=== PATIENT | female | born 1985 | race Two or more races ===

== ENCOUNTER 2021-04-22 09:38 | Emergency (ER) | payer OTHER, SELFPAY ==
--- NOTE | ~2021-04-22 | XR_ITS ---
EXAMINATION: XR CHEST CLINICAL INFORMATION: Coughing COMPARISON: None TECHNIQUE: 2 views of the chest were obtained. FINDINGS: No significant abnormality is noted involving the heart, lungs, mediastinum, bony thorax or soft tissues. XR/XR chest 2V IMPRESSION: No acute disease.
[2021-04-22 09:50] VITALS: BP 121/43; PULSE 74; RESP 20; TEMP 37.2; O2SAT 100; BMI 26.5
--- NOTE | 2021-04-22 10:59 | ED_ITS ---
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 Related Data Allergies Allergy/AdvReac Type Severity Reaction Status Date / Time No Known Allergies Allergy Verified 04/22/21 10:58 Review of Systems Review of Systems: All other systems are reviewed and are negative Constitutional: Reports as per HPI and Reports no additional constitutional complaints Eyes: Reports as per HPI and Reports no additional eye complaints Reports system reviewed and no additional complaints, except as documented Cardiovascular: Reports as per HPI and Reports no additional cardiovascular complaints Respiratory: Reports as per HPI and Reports no additional respiratory complaints Gastrointestinal: Reports as per HPI and Reports no additional gastrointestinal complaints Genitourinary: Reports no additional female genitourinary complaints Musculoskeletal: Reports no additional musculoskeletal complaints Skin/Breast: Reports system reviewed and no additional complaints, except as docu Psychiatric: Reports no additional psychiatric complaints Endocrine: Reports no additional endocrine complaints Hematologic/Lymphatic: Reports no additional hematologic/lymphatic complaints Allergic/Immunologic: Reports no additional allergic/immunologic complaints Reports system reviewed and no additional complaints, except as documented and Reports Abnormal speech present [facility] Past Medical History Surgical History Previous section Social History Social History Advance Directives: No Patient : No Physical Exam Vital Signs: Vital Signs: Last Vital Signs Temp 98.9 F 04/22/21 09:50 Pulse 74 04/22/21 09:50 Resp 20 04/22/21 09:50 BP 121/43 L 04/22/21 09:50 Pulse Ox 100 04/22/21 09:50 Body Mass Index 26.5 Vital signs have been reviewed as appeared to be correct. Blood pressure normal. Heart rate normal. Respiration rate normal. Temperature normal. Oxygen saturation normal. Appearance: Alert. Oriented X3. No acute distress. Head: Normal external exam. Normocephalic. Atraumatic. No Wilson signs noted. No raccoon eyes noted Eyes: PERRLA. EOMI. Conjunctiva and sclera normal. Eyelids normal. ENT: TM's Normal. Pharynx normal. Uvula midline. Moist mucous membranes. No trismus noted. No drooling noted. No muffled voice noted. Neck: Normal inspection. Neck supple. FROM. No adenopathy. Thyroid Normal. No meningeal signs. No neck mass noted. CVS: Normal heart rate and rhythm. Heart sound normal. No murmurs noted. Pulses normal throughout. Respiratory: No respiratory distress. Painless inspiration. Breath sounds normal. No wheezes/rales/rhonchi noted. Chest nontender. No accessory muscle usage noted or decreased air movement noted. Abdomen: Soft and nontender. Bowel sounds normal in all 4 quadrants. No distention noted. No organomegaly noted. No visible injury noted. Back: No CVA tenderness. Full range of motion noted. Skin: Skin warm and dry. Normal skin color. Normal skin turgor. No rashes/lesions/lacerations noted. Extremities: No lower extremity edema. Extremities exhibit normal range of motion. Extremities nontender. Neuro: Oriented X 3. Cranial nerve exam: II-XII are grossly intact No motor deficit. No sensory deficit. Reflexes normal. Course Course Course Narrative: Assessment and plan. Upper respiratory viral infection. NSAIDs, rest. Medical Decision Making Lab Data Lab results reviewed: Yes I reviewed the patient's lab results. Labs: Lab Results 04/22/21 Range/Units 11:13 Influenza Type A (PCR) NEGATIVE (Negative) Influenza Type B (PCR) NEGATIVE (Negative) RSV RNA Qual (PCR) NEGATIVE (Negative) SARS-CoV-2 RNA (RT-PCR) NEGATIVE (Negative) Imaging Data Chest x-ray: Radiologist's impression: No acute lung pathology. Discharge Plan Discharge Clinical Impression: Viral infection Patient Disposition: Home, Self-Care Instructions: Viral Syndrome (ED) Referrals: Physician,Unknown J [Primary Care Provider] - 2 days Stand Alone Forms: Work/School Release
[2021-04-22 11:57] LABS: Influenza A PCR NEGATIVE (Negative); Influenza B PCR NEGATIVE (Negative); Resp Syncy Virus RNA Qual PCR NEGATIVE (Negative); SARS COV2 PCR INHOUSE NEGATIVE (Negative)
== END 2021-04-22 12:09 | disposition home or self-care (01) ==
PROVIDERS: Emergency Provider Emergency Medicine
DX: B34.9 Viral infection, unspecified (principal); Z20.822 Contact with and (suspected) exposure to COVID-19
CPT/HCPCS: 0241U; 36415; 71046; 99283

== ENCOUNTER 2021-05-30 07:20 | Emergency (ER) | payer OTHER, MEDICAID, SELFPAY ==
[2021-05-30 07:31] VITALS: BP 113/68; PULSE 81; RESP 16; TEMP 36.6; O2SAT 98; BMI 26.1
--- NOTE | 2021-05-30 08:08 | ED.EAR ---
HPI - Ear Problem General Chief complaint: Ear Problems Stated complaint: ear pain Time Seen by Provider: 05/30/21 08:02 Source: patient Mode of arrival: ambulatory Limitations: no limitations History of Present Illness HPI Narrative: Sore throat and left ear pain. Two days ago started with left-sided throat pain, seeing white patches on the left side of the throat, pain radiated to the left ear. Patient has 3 vaccination for COVID, no sick contacts, no recent travel, no recent swelling. Related Data Previous Rx's Medication Instructions Recorded amoxicillin 500 mg tablet 500 mg PO BID #14 tab 05/30/21 Allergies Allergy/AdvReac Type Severity Reaction Status Date / Time No Known Allergies Allergy Verified 04/22/21 10:58 Review of Systems Review of Systems: All other systems are reviewed and are negative Constitutional: Reports as per HPI and Reports no additional constitutional complaints Eyes: Reports as per HPI and Reports no additional eye complaints Reports system reviewed and no additional complaints, except as documented Cardiovascular: Reports as per HPI and Reports no additional cardiovascular complaints Respiratory: Reports as per HPI and Reports no additional respiratory complaints Gastrointestinal: Reports as per HPI and Reports no additional gastrointestinal complaints Genitourinary: Reports no additional female genitourinary complaints Musculoskeletal: Reports no additional musculoskeletal complaints Skin/Breast: Reports system reviewed and no additional complaints, except as docu Psychiatric: Reports no additional psychiatric complaints Endocrine: Reports no additional endocrine complaints Hematologic/Lymphatic: Reports no additional hematologic/lymphatic complaints Allergic/Immunologic: Reports no additional allergic/immunologic complaints Reports system reviewed and no additional complaints, except as documented and Reports Abnormal speech present [facility] Past Medical History Surgical History Previous section Social History Social History Advance Directives: No Advance Directives Information Provided: Yes Patient : No Physical Exam Vital Signs: Vital Signs: Last Vital Signs Temp 98 F 05/30/21 07:31 Pulse 81 05/30/21 07:31 Resp 16 05/30/21 07:31 BP 113/68 05/30/21 07:31 Pulse Ox 98 05/30/21 07:31 BMI result Body Mass Index 26.1 Vital signs have been reviewed as appeared to be correct. Blood pressure normal. Heart rate normal. Respiration rate normal. Temperature normal. Oxygen saturation normal. Appearance: Alert. Oriented X3. No acute distress. Head: Normal external exam. Normocephalic. Atraumatic. No Wilson signs noted. No raccoon eyes noted Eyes: PERRLA. EOMI. Conjunctiva and sclera normal. Eyelids normal. ENT: Slight left TM erythema, with tenderness to the left year on exam, Pharynx with mild erythema, no exudate, Uvula midline. Moist mucous membranes. No trismus noted. No drooling noted. No muffled voice noted. Neck: Normal inspection. Neck supple. FROM. No adenopathy. Thyroid Normal. No meningeal signs. No neck mass noted. CVS: Normal heart rate and rhythm. Heart sound normal. No murmurs noted. Pulses normal throughout. Respiratory: No respiratory distress. Painless inspiration. Breath sounds normal. No wheezes/rales/rhonchi noted. Chest nontender. No accessory muscle usage noted or decreased air movement noted. Abdomen: Soft and nontender. Bowel sounds normal in all 4 quadrants. No distention noted. No organomegaly noted. No visible injury noted. Back: No CVA tenderness. Full range of motion noted. Skin: Skin warm and dry. Normal skin color. Normal skin turgor. No rashes/lesions/lacerations noted. Extremities: No lower extremity edema. Extremities exhibit normal range of motion. Extremities nontender. Neuro: Oriented X 3. Cranial nerve exam: II-XII are grossly intact No motor deficit. No sensory deficit. Reflexes normal. Course Course Course Narrative: Assessment and plan: 36-year-old female came in with sore throat and left ear otitis media start the patient on amoxicillin/NSAIDs/1 dose of prednisone in the ED to help the swelling and the erythema. Discharge Plan Discharge Clinical Impression: Otitis media, Pharyngitis Patient Disposition: Home, Self-Care Instructions: Pharyngitis (ED), Ear Infection (ED) Prescriptions: New amoxicillin 500 mg tablet 500 mg PO BID Qty: 14 RF: 0 Referrals: Afsaneh Singh PA [Primary Care Provider] - 2 days
[2021-05-30] MEDS: Ibuprofen 600 MG TABLET PO (08:25)
[2021-05-30] MEDS: Amoxicillin 500 MG CAPSULE PO (08:25)
[2021-05-30] MEDS: predniSONE 20 MG TABLET 40 MG PO (08:25)
[2021-05-30 08:27] VITALS: BP 104/62; PULSE 70; RESP 16; O2SAT 100
== END 2021-05-30 08:43 | disposition home or self-care (01) ==
PROVIDERS: Emergency Provider Emergency Medicine; PCP Physician Assistant Medical
DX: H66.92 Otitis media, unspecified, left ear (principal); J02.9 Acute pharyngitis, unspecified
CPT/HCPCS: 99283

== ENCOUNTER 2021-08-02 09:30 | Emergency (ER) | payer OTHER, SELFPAY ==
--- NOTE | ~2021-08-02 | CT_ITS ---
EXAMINATION: CT SOFT TISSUE NECK WITH CONTRAST CLINICAL INFORMATION: Neck pain. Family history of lymphoma. COMPARISON: No relevant prior imaging. TECHNIQUE: Following the intravenous administration of 100 mL of Omnipaque 350 intravenous contrast, helical imaging was performed in the axial plane with generation of coronal and sagittal reformatted images. This CT examination was performed using dose optimization techniques as appropriate, variously including the following: *Automated exposure control *Adjustment of mA and/or kV according to patient size (this includes techniques or standardized protocols for targeted exams where dose is matched to indication/reason for exam; i.e. extremities or head) *Use of iterative reconstruction technique DLP: 488 mGy-cm FINDINGS: There is nonspecific prominence of the palatine tonsils. Parapharyngeal and retromaxillary fat is preserved. Bung Dropper spaces are symmetric. The parotid and submandibular glands are normal. The tongue base and epiglottis are normal. Preepiglottic fat is preserved. Glottic and subglottic airways are widely patent. The thyroid gland is normal and the remainder of the visualized visceral soft tissues are normal. No pathologically enlarged cervical lymph nodes. No mediastinal or axillary adenopathy is visualized within the [id number] of this examination. Lung apices are clear. Aortic arch apex is normal. Cervical carotid and vertebral arteries are patent. Internal jugular veins fill symmetrically. There is no acute osseous finding. No worrisome lytic or blastic osseous lesion. The skull base is intact. No mastoid or middle ear effusion. No active paranasal sinus disease. CT/CT soft tissue neck w con IMPRESSION: Mild nonspecific prominence of the palatine tonsils. Otherwise normal soft tissue neck CT scan. No identifiable enhancing soft tissue mass or adenopathy.
[2021-08-02 09:36] VITALS: BP 113/59; PULSE 78; RESP 18; TEMP 36.8; O2SAT 99; BMI 26.1
[2021-08-02 10:09] LABS: Basophils Percent Auto 0.4 % (0-2); Eosinophils Absolute Auto 0.1 X10*3/uL (0.0-0.4); Eosinophils Percent Auto 1.7 % (0-4); Hematocrit 37.7 % (37.0-47.0); Hemoglobin 12.4 g/dl (12.0-16.0); Imm Gran Abs Auto 0.01 X10*3/uL (0.00-0.03); Imm Gran Pct Auto 0.2 % (0.0-0.4); Lymphocytes Absolute Auto 0.9 X10*3/uL (1.2-4.9); Lymphocytes Percent Auto 17.4 % (20-40); MANUAL DIFF FLAG NO; Mean Corpuscular HGB Conc 32.9 g/dl (31.0-35.0); Mean Corpuscular Hemoglobin 29.9 pg (27.0-33.0); Mean Corpuscular Volume 90.8 fL (80.0-98.0); Mean Platelet Volume 12.1 fL (9.4-12.3); Monocytes Absolute Auto 0.6 X10*3/uL (0.1-1.2); Monocytes Percent Auto 12.1 % (2-11); Neutrophils Absolute Auto 3.6 x10*3/uL (2.0-8.3); Neutrophils Percent Auto 68.2 % (45-73); Platelet Count 183 X10*3/uL (160-400); Red Blood Count 4.15 X10*6/uL (4.20-5.50); White Blood Count 5.3 X10*3/uL (4.8-10.8)
[2021-08-02] MEDS: 0.9 % Sodium Chloride 1,000 ML 999 ML IVCONT (10:11)
[2021-08-02 10:19] LABS: Strep A Nucleic Acid Negative (Negative)
[2021-08-02 10:31] LABS: Alanine Aminotransferase 15 U/L (0-31); Albumin Level 4.3 g/dL (3.5-5.0); Alkaline Phosphatase 59 U/L (39-117); Anion Gap 12 (12-20); Aspartate Amino Transferase 17 U/L (5-31); Bilirubin Total 0.4 mg/dL (0.0-1.0); Blood Urea Nitrogen 10 mg/dL (9-16); C Reactive Protein 0.87 mg/dL (< or = 0.50); Calcium 9.3 mg/dL (8.4-10.2); Carbon Dioxide 27 mmol/L (22-29); Chloride 103 mmol/L (96-108); Creatinine Clr Calc Pharmacy 109.6; Estimated Glomerular Filt Rate > 60; Glucose Random 92 mg/dL (60-115); Magnesium 2.1 mg/dL (1.6-2.6); Potassium 3.9 mmol/L (3.3-5.1); Sodium 138 mmol/L (135-145)
[2021-08-02 10:38] LABS: HCG Quantitative < 2 mIU/mL
--- NOTE | 2021-08-02 10:44 | ED.URI ---
HPI - URI/Sore Throat General Chief Complaint: General Medical Stated Complaint: dental issue Time Seen by Provider: 08/02/21 09:37 Source: patient Mode of arrival: ambulatory Limitations: language barrier (Czech-speaking although speaks some Kiswahili) History of Present Illness HPI Narrative: 36-year-old female who reports that she had a thyroid issue when her daughter was born 10 years ago who denies any other medical history presenting to the ED with complaints of atraumatic left sided neck pain/throat pain for the past 4 months. She reports that she was seen her approximately 3 months ago was given antibiotics for possible bacterial pharyngitis and she took the antibiotics as prescribed and no relief in her symptoms. She reports that her mother has a history of lymphoma. She reports that her sister also has a history of some type of cancer that she is unaware what actual cancer but she is being treated for it. She reports her aunt also has breast cancer. She denies any fevers, chills, dizziness, headaches, neck swelling/stiffness, trouble swallowing or breathing, drooling, changes in her voice, ear pain, cough, chest pain or shortness of breath, rashes, falls, dyspnea on exertion, orthopnea, palpitations, nausea/vomiting/diarrhea constipation, abdominal pain, back pain, dysuria, hematuria, abnormal vaginal discharge or any other symptoms complaints or concerns at this time. Denies recent travel or sick contacts. MD elicited complaint: sore throat Onset (ago): month(s) (4) Consistency: constant and progressively worsening Severity: moderate Able to tolerate fluids by mouth: Yes Exacerbating factors: nothing Relieving factors: nothing Context: other (See above) Associated symptoms: denies other symptoms Treatments prior to arrival: other (See above) Related Data Previous Rx's Medication Instructions Recorded amoxicillin 500 mg tablet 500 mg PO BID #14 tab 05/30/21 amoxicillin 875 mg-potassium 1 tab PO BID 10 Days #20 tab 08/02/21 clavulanate 125 mg tablet prednisone 20 mg tablet 40 mg PO DAILY 5 Days #10 tab 08/02/21 Allergies Allergy/AdvReac Type Severity Reaction Status Date / Time No Known Allergies Allergy Verified 04/22/21 10:58 Review of Systems Review of Systems: Constitutional : No Weight loss, No Fever, No Chills, No Night Sweats, No Fatigue, No Malaise ENT/Mouth : + left sided sore throat/throat/neck pain, No Hearing loss, No Ear Pain, No Nasal Congestion, No Sinus Pain, No Hoarseness, No Rhinorrhea, No Swallowing Difficulty Eyes: No Eye Pain, No Swelling, No Redness, No Foreign Body, No Discharge, No Vision Changes Cardiovascular : No Chest Pain, No SOB, No Dyspnea on Exertion, No Orthopnea, No Edema, No Palpitations Respiratory : No Cough, No Sputum, No Wheezing, No Smoke Exposure, No Dyspnea Gastrointestinal : No Nausea, No Vomiting, No Diarrhea, No Constipation, No abdominal Pain, No Hematochezia, No Melena Genitourinary : no irregular bleeding, No Dysuria, No Urinary Frequency, No Hematuria, No Urinary Incontinence, No Urgency, No Flank Pain, No Urinary Flow Changes, No Hesitancy Musculoskeletal : No joint pain, No Myalgias, No Joint Swelling Skin : No Skin Lesions, No rash Neuro : No Weakness, No Numbness, No Paresthesias, No Loss of Consciousness, No Dizziness, No Headache Psych : No Anxiety/Panic, No Depression, No SI/HI/AH/VH, No Social Issues, Heme/Lymph: No Bruising, No Bleeding,No Lymphadenopathy Endocrine : No Polyuria, No Polydipsia, No Temperature Intolerance Yes all other systems are reviewed and are negative [facility] Past Medical History Attestation statement: The following information was validated with the patient. Surgical History Previous section Social History Social History Advance Directives: No Advance Directives Information Provided: No Physical Exam Vital Signs: Vital Signs: Last Vital Signs Temp 98.3 F 08/02/21 09:36 Pulse 78 08/02/21 09:36 Resp 18 08/02/21 09:36 BP 113/59 L 08/02/21 09:36 Pulse Ox 99 08/02/21 09:36 BMI result Body Mass Index 26.1 vital signs have been reviewed as normal and appeared to be correct. Blood pressure normal. Heart rate normal. Respiration rate normal. Temperature normal. Oxygen saturation normal. Appearance: Alert. Oriented X3. No acute distress. Head: Normal external exam. Normocephalic. Atraumatic. Eyes: PERRLA. EOMI. Conjunctiva and sclera normal. Eyelids normal. ENT: EAC normal. TM's Normal. Pharynx normal. No exudate is noted. On the tongue there are no masses or lesions or ulcerations noted although she is noted to have punctuated black discoloration on the proximal aspect left side of the tongue. Uvula midline. Moist mucous membranes. No trismus noted. No drooling noted. No muffled voice noted. Neck: Normal inspection. Neck supple. FROM. No adenopathy. Thyroid Normal. No tracheal deviation noted. No crepitus is noted. No meningeal signs. No neck mass noted. No signs of trauma noted. CVS: Normal heart rate and rhythm. Heart sound normal. Pulses normal throughout. No murmurs/rales/gallops. Respiratory: No respiratory distress. Painless inspiration. Breath sounds normal. No wheezes/rales/rhonchi noted. Chest nontender. No crepitus is noted. No signs of trauma noted. accessory muscle usage noted or decreased air movement noted. No signs of trauma. Back: Full range of motion noted. Nontender. No signs of trauma. Patient neuro intact bilaterally and distally on all 4 extremities. Patient's reflexes intact bilaterally and distally on all 4 extremities. No rashes/lesion/induration/fluctuance or signs of infection noted. Skin: Skin warm and dry. Normal skin color. Normal skin turgor. No rashes/lesions/lacerations noted. Extremities: No lower extremity edema. No calf tenderness is noted. Extremities exhibit normal range of motion and nontender. Neuro: Oriented X 3. No motor deficit. No sensory deficit. Reflexes normal. Normal steady gait. No focal neuro deficits noted. CN's II-XII intact bilaterally? Vascular: + radial pulses/+ 2 distal pedal pulses/+2 dorsalis pedis b/l. Normal cap refill. No cyanosis noted to upper extremity nails and lower extremity toes nails. Course Course Course Narrative: 9:45am - 36-year-old female who reports that she had a thyroid issue when her daughter was born 10 years ago who denies any other medical history presenting to the ED with complaints of atraumatic left sided neck pain/throat pain for the past 4 months. She reports that she was seen her approximately 3 months ago was given antibiotics for possible bacterial pharyngitis and she took the antibiotics as prescribed and no relief in her symptoms. She reports that her mother has a history of lymphoma. She reports that her sister also has a history of some type of cancer that she is unaware what actual cancer but she is being treated for it. She reports her aunt also has breast cancer. Plan: Labs, rapid strep, CT scan of soft tissue neck with contrast and provide a L of IV fluids and re-evaluate. Reevaluation(s) Reevaluation #1: - labs returned and patient's CRP 0.87 otherwise all other labs are within normal limits. She is negative for mono. She is negative for strep. Her TSH level was within normal limits. - CT scan of soft tissue neck revealed mild nonspecific prominence of the tonsils otherwise no other acute processes were noted. Therefore will DC home with some antibiotics and instructions to follow-up with primary care provider and to return if any new or worsening symptoms. Patient understands agrees with this plan. Time: 11:50 MDM - URI/Sore Throat Medical Records Attestation: I reviewed the patient's medical records. Lab Data Attestation: I reviewed the patient's lab results. Result diagrams: 08/02/21 10:01 08/02/21 10:01 Labs: Lab Results 08/02/21 08/02/21 08/02/21 Range/Units 09:58 10:01 10:01 WBC 5.3 (4.8-10.8) X10*3/uL RBC 4.15 L (4.20-5.50) X10*6/uL Hgb 12.4 (12.0-16.0) g/dl Hct 37.7 (37.0-47.0) % MCV 90.8 (80.0-98.0) fL MCH 29.9 (27.0-33.0) pg MCHC 32.9 (31.0-35.0) g/dl RDW 13.0 (11.0-16.0) % Plt Count 183 (160-400) X10*3/uL MPV 12.1 (9.4-12.3) fL Immature Gran % (Auto) 0.2 (0.0-0.4) % Neut % (Auto) 68.2 (45-73) % Lymph % (Auto) 17.4 L (20-40) % [place] % (Auto) 12.1 H (2-11) % Eos % (Auto) 1.7 (0-4) % Baso % (Auto) 0.4 (0-2) % Lymph # (Auto) 0.9 L (1.2-4.9) X10*3/uL [place] # (Auto) 0.6 (0.1-1.2) X10*3/uL Eos # (Auto) 0.1 (0.0-0.4) X10*3/uL Baso # (Auto) 0.0 (0.0-0.2) X10*3/uL Abs Immat Gran (auto) 0.01 (0.00-0.03) X10*3/uL Absolute Neuts (auto) 3.6 (2.0-8.3) x10*3/uL Absolute Nucleated RBC 0.000 (0.0-0.012) X10*3/uL Nucleated RBC % (auto) 0.0 (0.0-0.2) /100WBC ESR (0-20) MM/HR Sodium 138 (135-145) mmol/L Potassium 3.9 (3.3-5.1) mmol/L Chloride 103 (96-108) mmol/L Carbon Dioxide 27 (22-29) mmol/L Anion Gap 12 (12-20) BUN 10 (9-16) mg/dL Creatinine 0.83 (0.5-1.4) mg/dL Estim Creat Clear Calc 109.6 Estimated GFR > 60 Random Glucose 92 (60-115) mg/dL Calcium 9.3 (8.4-10.2) mg/dL Magnesium 2.1 (1.6-2.6) mg/dL Total Bilirubin 0.4 (0.0-1.0) mg/dL AST 17 (5-31) U/L ALT 15 (0-31) U/L Alkaline Phosphatase 59 (39-117) U/L C-Reactive Protein 0.87 H (< or = 0.50) mg/dL Total Protein 7.0 (6.5-8.0) g/dL Albumin 4.3 (3.5-5.0) g/dL TSH 1.79 (0.32-4.0) uIU/mL Beta HCG, Quant mIU/mL Monoscreen (Negative) S. pyogenes GrpA MICKEY Negative (Negative) 08/02/21 08/02/21 08/02/21 Range/Units 10:01 10:01 10:01 WBC (4.8-10.8) X10*3/uL RBC (4.20-5.50) X10*6/uL Hgb (12.0-16.0) g/dl Hct (37.0-47.0) % MCV (80.0-98.0) fL MCH (27.0-33.0) pg MCHC (31.0-35.0) g/dl RDW (11.0-16.0) % Plt Count (160-400) X10*3/uL MPV (9.4-12.3) fL Immature Gran % (Auto) (0.0-0.4) % Neut % (Auto) (45-73) % Lymph % (Auto) (20-40) % [place] % (Auto) (2-11) % Eos % (Auto) (0-4) % Baso % (Auto) (0-2) % Lymph # (Auto) (1.2-4.9) X10*3/uL [place] # (Auto) (0.1-1.2) X10*3/uL Eos # (Auto) (0.0-0.4) X10*3/uL Baso # (Auto) (0.0-0.2) X10*3/uL Abs Immat Gran (auto) (0.00-0.03) X10*3/uL Absolute Neuts (auto) (2.0-8.3) x10*3/uL Absolute Nucleated RBC (0.0-0.012) X10*3/uL Nucleated RBC % (auto) (0.0-0.2) /100WBC ESR 6 (0-20) MM/HR Sodium (135-145) mmol/L Potassium (3.3-5.1) mmol/L Chloride (96-108) mmol/L Carbon Dioxide (22-29) mmol/L Anion Gap (12-20) BUN (9-16) mg/dL Creatinine (0.5-1.4) mg/dL Estim Creat Clear Calc Estimated GFR Random Glucose (60-115) mg/dL Calcium (8.4-10.2) mg/dL Magnesium (1.6-2.6) mg/dL Total Bilirubin (0.0-1.0) mg/dL AST (5-31) U/L ALT (0-31) U/L Alkaline Phosphatase (39-117) U/L C-Reactive Protein (< or = 0.50) mg/dL Total Protein (6.5-8.0) g/dL Albumin (3.5-5.0) g/dL TSH (0.32-4.0) uIU/mL Beta HCG, Quant < 2 mIU/mL Monoscreen Negative (Negative) S. pyogenes GrpA MICKEY (Negative) Imaging Data CT a soft tissue neck with IV contrast: Attestation: I personally reviewed and interpreted this imaging study as follows: Radiologist's impression: FINDINGS: There is nonspecific prominence of the palatine tonsils. Parapharyngeal and retromaxillary fat is preserved. Manager Benefit spaces are symmetric. The parotid and submandibular glands are normal. The tongue base and epiglottis are normal. Preepiglottic fat is preserved. Glottic and subglottic airways are widely patent. The thyroid gland is normal and the remainder of the visualized visceral soft tissues are normal. No pathologically enlarged cervical lymph nodes. No mediastinal or axillary adenopathy is visualized within the [id number] of this examination. Lung apices are clear. Aortic arch apex is normal. Cervical carotid and vertebral arteries are patent. Internal jugular veins fill symmetrically. There is no acute osseous finding. No worrisome lytic or blastic osseous lesion. The skull base is intact. No mastoid or middle ear effusion. No active paranasal sinus disease. CT/CT soft tissue neck w con IMPRESSION: Mild nonspecific prominence of the palatine tonsils. Otherwise normal soft tissue neck CT scan. No identifiable enhancing soft tissue mass or adenopathy.? Discharge Plan Discharge Clinical Impression: Enlargement of right palatine tonsil, Enlargement of left palatine tonsil Patient Disposition: Home, Self-Care Instructions: Tonsillitis (ED) Prescriptions: New amoxicillin-pot clavulanate 875-125 mg tablet 1 tab PO BID 10 Days Qty: 20 0RF prednisone 20 mg tablet 40 mg PO DAILY 5 Days Qty: 10 0RF No Action amoxicillin 500 mg tablet 500 mg PO BID Qty: 14 0RF Referrals: Geraldo Barreto [Physician] - 2 days
[2021-08-02 10:45] LABS: Erythrocyte Sedimentation Rate 6 MM/HR (0-20)
[2021-08-02 10:52] LABS: TSH reflex Free T4 1.79 uIU/mL (0.32-4.0)
[2021-08-02 10:57] LABS: Monotest Negative (Negative)
[2021-08-02] MEDS: iohexoL 350 MG/ML 100 ML INFUS..BTL 60 ML IV (10:59)
[2021-08-02 12:36] LABS: COVID-19 Test Negative (Negative)
== END 2021-08-02 12:15 | disposition home or self-care (01) ==
PROVIDERS: Physician Assistant Medical; Emergency Provider Emergency Medicine
DX: J35.1 Hypertrophy of tonsils (principal); Z79.899 Other long term (current) drug therapy; Z20.822 Contact with and (suspected) exposure to COVID-19
CPT/HCPCS: 36415; 70491; 80053; 83735; 84443; 84702; 85025; 85652; 86140; 86308; 87635; 87651; 99283; Q9967

== ENCOUNTER 2022-08-02 09:40 | Emergency (ER) | payer OTHER, SELFPAY ==
--- NOTE | ~2022-08-02 | CT_ITS ---
EXAMINATION: CT ABDOMEN AND PELVIS WITHOUT CONTRAST CLINICAL INFORMATION: Left flank pain COMPARISON: None TECHNIQUE: Multidetector volumetric imaging was performed from the superior aspect of the liver through the pubic symphysis. Sagittal and coronal reformatted images were obtained on the technologist's workstation. This CT examination was performed using dose optimization techniques as appropriate, variously including the following: *Automated exposure control *Adjustment of mA and/or kV according to patient size (this includes techniques or standardized protocols for targeted exams where dose is matched to indication/reason for exam; i.e. extremities or head) *Use of iterative reconstruction technique DLP: 640 mGy-cm FINDINGS: LUNG BASES: The visualized lung bases are unremarkable. LIVER, GALLBLADDER, AND BILIARY TREE: The liver is normal in size, shape, and attenuation. No focal hepatic lesion or biliary ductal dilatation is present. The gallbladder is unremarkable with no evidence of radiopaque gallstones, gallbladder wall thickening, or obvious pericholecystic inflammatory changes. PANCREAS: Unremarkable. SPLEEN: Unremarkable. ADRENAL GLANDS: Unremarkable. KIDNEYS AND URETERS: The kidneys are normal in size, shape, and attenuation. No hydronephrosis, hydroureter, or calculi seen. No perinephric stranding. BLADDER: Unremarkable. GASTROINTESTINAL TRACT: Stool throughout the colon suggestive of constipation. The small and large bowel are unremarkable. The appendix is unremarkable. ABDOMINAL WALL: Diastasis of the rectus muscles. LYMPH NODES: Normal. VASCULAR: Unremarkable. PELVIC VISCERA: Unremarkable. OSSEOUS STRUCTURES: Unremarkable. CT/CT abdomen pelvis wo IV con IMPRESSION: No stone or hydronephrosis seen. Constipation. Fleischner guidelines were followed.
[2022-08-02 10:05] VITALS: BP 116/74; PULSE 79; RESP 18; TEMP 36.3; O2SAT 100; BMI 24.8
[2022-08-02 10:19] LABS: MANUAL DIFF FLAG NO
[2022-08-02 10:21] LABS: Basophils Percent Auto 0.5 % (0-2); Eosinophils Absolute Auto 0.1 X10*3/uL (0.0-0.4); Eosinophils Percent Auto 2.3 % (0-4); Hematocrit 40.3 % (37.0-47.0); Hemoglobin 13.3 g/dl (12.0-16.0); Imm Gran Abs Auto 0.02 X10*3/uL (0.00-0.03); Imm Gran Pct Auto 0.3 % (0.0-0.4); Lymphocytes Absolute Auto 1.2 X10*3/uL (1.2-4.9); Lymphocytes Percent Auto 20.6 % (20-40); Mean Platelet Volume 11.6 fL (9.4-12.3); Monocytes Absolute Auto 0.7 X10*3/uL (0.1-1.2); Monocytes Percent Auto 11.6 % (2-11); Neutrophils Absolute Auto 3.9 x10*3/uL (2.0-8.3); Neutrophils Percent Auto 64.7 % (45-73); Platelet Count 196 X10*3/uL (160-400); Red Blood Count 4.43 X10*6/uL (4.20-5.50)
[2022-08-02 10:22] LABS: Appearance Urine Clear; Color Urine Yellow; Glucose Urine UA Negative (Negative); Leukocyte Esterase Urine Trace (Negative); Nitrite Urine Negative (Negative); Specific Gravity - Urine 1.025 (1.005-1.025); UMIC TRIGGER UACC YES; Urine Blood Negative (Negative); Urine Ketones Negative (Negative); Urine Protein Negative (Neg-Trace)
[2022-08-02 10:24] LABS: Bacteria Urine None Seen (None Seen); Hyaline Casts Urine 0-2 /LPF (0-2); RBC Urine 0-2 /HPF (0-2); WBC Urine 0-5 /HPF (0-5)
[2022-08-02 10:59] LABS: Alanine Aminotransferase 37 U/L (0-31); Albumin Level 4.2 g/dL (3.5-5.0); Alkaline Phosphatase 56 U/L (39-117); Anion Gap 13 (12-20); Aspartate Amino Transferase 26 U/L (5-31); Bilirubin Total 0.5 mg/dL (0.0-1.0); Blood Urea Nitrogen 15 mg/dL (9-16); Calcium 9.2 mg/dL (8.4-10.2); Carbon Dioxide 24 mmol/L (22-29); Chloride 105 mmol/L (96-108); Creatinine Clr Calc Pharmacy 101.6; Estimated Glomerular Filt Rate > 60; Glucose Random 66 mg/dL (60-115); Potassium 3.9 mmol/L (3.3-5.1); Sodium 138 mmol/L (135-145); Total Protein 6.8 g/dL (6.5-8.0)
--- NOTE | 2022-08-02 14:22 | ED.ABDPAIN ---
HPI - Abdominal Pain General Chief Complaint: Abdominal Pain Stated Complaint: L flank pain Time Seen by Provider: 08/02/22 14:02 Source: patient Mode of arrival: ambulatory Limitations: no limitations History of Present Illness HPI narrative: Patient comes to the emergency room complaining of left lower quadrant/left flank pain for approximately 2 months. Patient states the pain is constant. Patient complaining of intermittent dysuria, no hematuria. Denies any fever or chills. Also, patient states that when she wakes up in the morning or or eats anything 1st thing in the morning, she has burning abdominal pain. Related Data Previous Rx's Medication Instructions Recorded amoxicillin 500 mg tablet 500 mg PO BID #14 tabs 05/30/21 amoxicillin 875 mg-potassium 1 tab PO BID 10 days #20 tabs 08/02/21 clavulanate 125 mg tablet prednisone 20 mg tablet 40 mg PO DAILY rash 5 days #10 tabs 08/02/21 nitrofurantoin 100 mg PO Q12H 5 days #10 caps 08/02/22 monohydrate/macrocrystals 100 mg capsule (Macrobid) omeprazole 40 mg capsule,delayed 40 mg PO DAILY #14 caps 08/02/22 release polyethylene glycol 3350 17 17 g PO DAILY #119 grams 08/02/22 gram/dose oral powder (Miralax) Allergies Allergy/AdvReac Type Severity Reaction Status Date / Time kiwi Allergy Rash Verified 08/02/22 10:09 Review of Systems Review of Systems Constitutional : No Weight loss, No Fever, No Chills, No Night Sweats, No Fatigue, No Malaise ENT/Mouth : No Hearing loss, No Ear Pain, No Nasal Congestion, No Sinus Pain, No Hoarseness, No sore throat, No Rhinorrhea, No Swallowing Difficulty Eyes: No Eye Pain, No Swelling, No Redness, No Foreign Body, No Discharge, No Vision Changes Cardiovascular : No Chest Pain, No SOB, No Dyspnea on Exertion, No Orthopnea, No Edema, No Palpitations Respiratory : No Cough, No Sputum, No Wheezing, No Smoke Exposure, No Dyspnea Gastrointestinal : No Nausea, No Vomiting, No Diarrhea, No Constipation, No abdominal Pain, No Hematochezia, No Melena Genitourinary : no irregular bleeding, complaining of mild intermittent Dysuria for 2 months, No Urinary Frequency, No Hematuria, No Urinary Incontinence, No Urgency, complaining of sided Flank Pain, No Urinary Flow Changes, No Hesitancy Musculoskeletal : No joint pain, No Myalgias, No Joint Swelling Skin : No Skin Lesions, No rash Neuro : No Weakness, No Numbness, No Paresthesias, No Loss of Consciousness, No Dizziness, No Headache Psych : No Anxiety/Panic, No Depression, No SI/HI/AH/VH, No Social Issues, Heme/Lymph: No Bruising, No Bleeding,No Lymphadenopathy Endocrine : No Polyuria, No Polydipsia, No Temperature Intolerance [facility] Past Medical History Surgical History Previous section Social History Social History Alcohol intake: never Smoked in Last 30 Days: No Use of substances other than those prescribed or required for medical reasons: No Advance Directives: No Advance Directives Information Provided: No Patient : No Physical Exam ED Vital Signs: Vital Signs - 24 hr 08/02/22 10:05 08/02/22 14:30 Temperature 97.4 F 97.9 F Pulse Rate 79 66 Respiratory Rate 18 16 Blood Pressure 116/74 106/60 Pulse Oximetry 100 100 Oxygen Delivery Method Room Air Room Air BMI result Body Mass Index 24.8 Const Other: Appearance: Alert. Oriented X3. No acute distress. Eyes: Pupils equal, round and reactive to light. ENT: Pharynx normal. Neck: Normal inspection. Neck supple. No lymph nodes noted. No crepitus CVS: Normal heart rate and rhythm. Pulses normal. Normal S1 and S2 Respiratory: No respiratory distress. Breath sounds normal. No Wheezing. No rales Abdomen: Soft and nontender. No rigidity. No distention. Skin: Skin warm and dry. Normal skin color. Normal skin turgor. Extremities: No lower extremity edema. No Lacerations. No Rash Neuro: Oriented X 3. No motor deficit. No sensory deficit. Moving all extremities. No slurred speech. CN 2 through 12 grossly intact Psych: calm, cooperative, normal affect Course Course Course Narrative: -patient's physical exam is normal, patient did not have left lower quadrant pain or flank pain. -patient's urine shows trace leukocyte esterase. Usually, this would not be treated, however, since patient is complaining of intermittent dysuria, we will go ahead and treated as a UTI. -CT scan pending. Unlikely that the patient is passing kidney stones -the description that the patient gives of the burning abdominal pain when eating drinking or 1st thing in the morning, is likely secondary to gastritis. Medical Decision Making Medical Decision Making [facility] Narrative: --patient's labs within normal limits, CT scan unremarkable. -discussed with patient that she few continues having burning sensation in the stomach in the mornings and with fluid intake, she needs to follow up with Gastroenterology, -she will be treated at home with omeprazole. If this does not help, patient may need endoscopy. Differential Diagnosis Differential Diagnoses: The differential diagnosis associated with the presentation includes (Pyelonephritis, musculoskeletal pain, gastritis) Lab Data [facility] Lab Attestation statement: I reviewed the patient's lab results. 08/02/22 10:14 08/02/22 10:14 Labs: Lab Results 08/02/22 08/02/22 08/02/22 Range/Units 10:14 10:14 10:14 WBC 6.0 (4.8-10.8) X10*3/uL RBC 4.43 (4.20-5.50) X10*6/uL Hgb 13.3 (12.0-16.0) g/dl Hct 40.3 (37.0-47.0) % MCV 91.0 (80.0-98.0) fL MCH 30.0 (27.0-33.0) pg MCHC 33.0 (31.0-35.0) g/dl RDW 13.0 (11.0-16.0) % Plt Count 196 (160-400) X10*3/uL MPV 11.6 (9.4-12.3) fL Immature Gran % (Auto) 0.3 (0.0-0.4) % Neut % (Auto) 64.7 (45-73) % Lymph % (Auto) 20.6 (20-40) % [place] % (Auto) 11.6 H (2-11) % Eos % (Auto) 2.3 (0-4) % Baso % (Auto) 0.5 (0-2) % Lymph # (Auto) 1.2 (1.2-4.9) X10*3/uL [place] # (Auto) 0.7 (0.1-1.2) X10*3/uL Eos # (Auto) 0.1 (0.0-0.4) X10*3/uL Baso # (Auto) 0.0 (0.0-0.2) X10*3/uL Abs Immat Gran (auto) 0.02 (0.00-0.03) X10*3/uL Absolute Neuts (auto) 3.9 (2.0-8.3) x10*3/uL Absolute Nucleated RBC 0.000 (0.0-0.012) X10*3/uL Nucleated RBC % (auto) 0.0 (0.0-0.2) /100WBC Sodium 138 (135-145) mmol/L Potassium 3.9 (3.3-5.1) mmol/L Chloride 105 (96-108) mmol/L Carbon Dioxide 24 (22-29) mmol/L Anion Gap 13 (12-20) BUN 15 (9-16) mg/dL Creatinine 0.82 (0.5-1.4) mg/dL Estim Creat Clear Calc 101.6 Estimated GFR > 60 Random Glucose 66 (60-115) mg/dL Calcium 9.2 (8.4-10.2) mg/dL Total Bilirubin 0.5 (0.0-1.0) mg/dL AST 26 (5-31) U/L ALT 37 H (0-31) U/L Alkaline Phosphatase 56 (39-117) U/L Total Protein 6.8 (6.5-8.0) g/dL Albumin 4.2 (3.5-5.0) g/dL Urine Color Yellow Urine Appearance Clear Urine pH 7.0 (5.0-9.0) Ur Specific [place] 1.025 (1.005-1.025) Urine Protein Negative (Neg-Trace) mg/dL Urine Glucose (UA) Negative (Negative) mg/dL Urine Ketones Negative (Negative) mg/dL Urine Blood Negative (Negative) Urine Nitrite Negative (Negative) Ur Leukocyte Esterase Trace H (Negative) Urine RBC 0-2 (0-2) /HPF Urine WBC 0-5 (0-5) /HPF Ur Squamous Epith Cells 6-10 (0-2) /HPF Urine Bacteria None Seen (None Seen) Hyaline Casts 0-2 (0-2) /LPF Independent Interpretation I performed an independent interpretation of an: CT Scan (My interpretation of CT scan: Significant amount of stool in the abdomen) Radiology Impression Discussion of test interpretation with radiology: I have reviewed the radiologist's reading. Radiologist Impression: FINDINGS: LUNG BASES: The visualized lung bases are unremarkable.? LIVER, GALLBLADDER, AND BILIARY TREE: The liver is normal in size, shape, and attenuation. No focal hepatic lesion or biliary ductal dilatation is present. The gallbladder is unremarkable with no evidence of radiopaque gallstones, gallbladder wall thickening, or obvious pericholecystic inflammatory changes.? PANCREAS: Unremarkable.? SPLEEN: Unremarkable.? ADRENAL GLANDS: Unremarkable.? KIDNEYS AND URETERS: The kidneys are normal in size, shape, and attenuation. No hydronephrosis, hydroureter, or calculi seen. No perinephric stranding. ? BLADDER: Unremarkable.? GASTROINTESTINAL TRACT: Stool throughout the colon suggestive of constipation. The small and large bowel are unremarkable. The appendix is unremarkable.? ABDOMINAL WALL: Diastasis of the rectus muscles. LYMPH NODES: Normal. VASCULAR: Unremarkable. PELVIC VISCERA: Unremarkable.? OSSEOUS STRUCTURES: Unremarkable.? CT/CT abdomen pelvis wo IV con IMPRESSION: No stone or hydronephrosis seen. Constipation. ? Fleischner guidelines were followed. Discharge Plan Discharge Clinical Impression: Chronic left flank pain, UTI (urinary tract infection), Constipation Patient Disposition: Home, Self-Care Instructions: Constipation (ED), Urinary Tract Infection in Women (ED) Additional Instructions: Please follow-up with your primary care physician tomorrow. If you have any worsening or new symptoms, please return to the emergency room or call 911 Prescriptions: New nitrofurantoin monohyd/m-cryst [Macrobid] 100 mg capsule 100 mg PO Q12H 5 Days Qty: 10 0RF Rx Instructions: must administer with a meal/food polyethylene glycol 3350 [Miralax] 17 gram/dose powder 17 g PO DAILY Qty: 119 0RF omeprazole 40 mg capsule,delayed release(DR/EC) 40 mg PO DAILY Qty: 14 0RF No Action amoxicillin 500 mg tablet 500 mg PO BID Qty: 14 0RF amoxicillin-pot clavulanate 875-125 mg tablet 1 tab PO BID 10 Days Qty: 20 0RF prednisone 20 mg tablet 40 mg PO DAILY 5 Days Qty: 10 0RF
[2022-08-02 14:30] VITALS: BP 106/60; PULSE 66; RESP 16; TEMP 36.6; O2SAT 100
--- NOTE | 2022-08-02 14:38 | PC.NURSE ---
pt AOx3, VSS. awaiting CT scan.
== END 2022-08-02 18:19 | disposition home or self-care (01) ==
PROVIDERS: Emergency Provider Emergency Medicine; PCP Internal Medicine
DX: R10.32 Left lower quadrant pain (principal); N39.0 Urinary tract infection, site not specified; K59.00 Constipation, unspecified; Z79.899 Other long term (current) drug therapy
CPT/HCPCS: 36415; 74176; 80053; 81001; 85025; 99284

== ENCOUNTER 2023-05-12 15:37 | Emergency (ER) | payer OTHER, SELFPAY ==
--- NOTE | ~2023-05-12 | XR_ITS ---
EXAMINATION: XR FOOT, LEFT CLINICAL INFORMATION: Dorsal tenderness, dropped weight on foot. COMPARISON: None available. TECHNIQUE: AP, lateral, and oblique views of the left foot. FINDINGS: No evidence of acutely appearing fractures or subluxation. 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 Nonspecific mild increased sclerosis of the navicular bone with a chronic appearing deformity along its dorsal surface on the lateral view. No significant soft tissue abnormality. No unexpected radiopaque foreign bodies. XR/XR foot LT min 3V IMPRESSION: 1. No acute fractures or subluxation. 2. 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 3. Nonspecific mild increased sclerosis of the navicular bone with a chronic appearing deformity along its dorsal surface; recommend correlation with point tenderness and if indicated further characterization with outpatient MRI of the foot.
[2023-05-12 16:33] VITALS: BP 115/70; PULSE 72; RESP 17; TEMP 36.5; O2SAT 98; BMI 27.8
--- NOTE | 2023-05-12 16:34 | ED_ITS ---
HPI - General Adult General Chief complaint: Extremity Injury, Lower Stated complaint: dropped weight on foot Time Seen by Provider: 05/12/23 19:41 Source: patient Mode of arrival: ambulatory Limitations: no limitations History of Present Illness HPI narrative: Patient is a 38-year-old female presenting to the ED with complaint of left foot pain. States she dropped a weight onto left foot at the gym yesterday. States weight was between 25-45lbs. Increased pain since, bruising. Numnbness/tingling to 4th toe. complaint: left foot pain Onset (ago): hour(s) Location: left and lower extremity Radiation: non-radiation Severity: severe Quality: aching Pain Consistency: constant Relieving factors: rest Exacerbating factors: movement Associated symptoms: denies other symptoms Treatments prior to arrival: NSAID Related Data Previous Rx's Medication Instructions Recorded amoxicillin 500 mg tablet 500 mg PO BID #14 tabs 05/30/21 amoxicillin 875 mg-potassium 1 tab PO BID 10 days #20 tabs 08/02/21 clavulanate 125 mg tablet prednisone 20 mg tablet 40 mg (2 x 20 mg) PO DAILY rash 5 08/02/21 days #10 tabs nitrofurantoin 100 mg PO Q12H 5 days #10 caps 08/02/22 monohydrate/macrocrystals 100 mg capsule (Macrobid) omeprazole 40 mg capsule,delayed 40 mg PO DAILY #14 caps 08/02/22 release polyethylene glycol 3350 17 17 g PO DAILY #119 grams 08/02/22 gram/dose oral powder (Miralax) ibuprofen 600 mg tablet 600 mg PO Q6H PRN pain #14 tabs 05/12/23 Allergies Allergy/AdvReac Type Severity Reaction Status Date / Time kiwi Allergy Rash Verified 08/02/22 10:09 Review of Systems Review of Systems: As per HPI. Yes all other systems are reviewed and are negative Constitutional: Constitutional: Reports as per HPI PMF Past Medical History Surgical History Previous section Social History Social History Alcohol intake: never Advance Directives: No Physical Exam ED Vital Signs: Vital Signs - 24 hr 05/12/23 16:33 05/12/23 19:33 Temperature 97.7 F Pulse Rate 72 74 Respiratory Rate 17 16 Blood Pressure 115/70 124/71 Pulse Oximetry 98 98 Oxygen Delivery Method Room Air Room Air BMI result Body Mass Index 27.8 Vital signs have been reviewed and appear to be correct. Blood pressure normal. Heart rate normal. Respiratory rate normal. Temperature normal. Oxygen saturation normal. Const General: cooperative, healthy appearing and no acute distress Orientation/consciousness: oriented to person, oriented to place, oriented to time and patient oriented x3 Limitations: no limitations HENMT Head: Yes normocephalic and Yes atraumatic Ears: external ears normal General nose exam: Normal external nose present Face and sinus: Yes face symmetric Mouth: oropharynx normal and moist mucous membranes Throat: Yes uvula midline Eyes Pupils: Equal, round and reactive pupils present Neck Neck: Yes normal visual inspection and Yes supple Resp Effort & Inspection: normal respiratory effort and able to speak in complete sentences Auscultation: clear to auscultation bilaterally Cardio Rate: regular rate Rhythm: regular rhythm Heart sounds: S1 normal heart sound present and S2 normal heart sound present Skin General skin exam: elasticity normal and turgor normal Neuro General: oriented to person, oriented to place, oriented to time, patient oriented x3, moves all extremities, no focal motor deficits and CN's II-XI intact bilaterally Cranial nerves: Yes Equal, round and reactive pupils present Cognition (Neuro): normal cognition Extrem General: Yes full ROM, Yes no pedal edema and Yes no calf tenderness Left lower extremity: foot Details: normal capillary refill and tenderness Location: of the dorsal foot Psych Mental Status: mental status grossly normal Affect: normal affect Thought process: Normal thought process present Medical Decision Making Medical Decision Making MDM Narrative: Patient is a 38-year-old female presenting to the ED with complaint of left foot pain. On exam patient is awake, A+Ox3, VS WNL, afebrile, normal neurological exam without focal deficits, physical exam findings as above. Given reported symptoms and physical exam findings, initial differential includes contusion, fracture. X-ray notable for no acute fracture. My interpretation is in agreement with the radiologist's interpretation. Results discussed with patient and all questions answered. Advised patient to keep foot elevated while at rest, alternate Tylenol and ibuprofen, will refer to ortho for any ongoing symptoms. Return precautions discussed. Patient verbalized understanding of and agreement wtih plan. Differential Diagnosis Differential Diagnoses: The differential diagnosis associated with the presentation includes As per [facility] Independent Interpretation I performed an independent interpretation of an: Plain X-Ray Interpretation: No acute fracture Radiology Impression Discussion of test interpretation with radiology: I have reviewed the radiolog ist's reading. Radiologist Impression: XR/XR foot LT min 3V IMPRESSION: 1. No acute fractures or subluxation. 2. 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 3. Nonspecific mild increased sclerosis of the navicular bone with a chronic appearing deformity along its dorsal surface; recommend correlation with point tenderness and if indicated further characterization with outpatient MRI of the foot. External Record Review External record reviewed: Inpatient record, Office record and Outpatient record Prescription Management I considered prescription management with: Pain Medication Discharge Plan Discharge Clinical Impression: Contusion of foot, left Patient Disposition: Home, Self-Care Instructions: Foot Contusion (ED), R.I.C.E. Treatment (ED) Additional Instructions: You have been evaluated in the emergency department today for left foot pain. Your evaluation did not find evidence of medical conditions requiring emergent intervention at this time. Please rest, ice, and elevate your foot, and resume normal activities as tolerated. We recommend you take 600mg ibuprofen every 6 hours or 650mg Tylenol every 6 hours as needed for pain. If Needed you can alternate these medications as they take 1 medication every 3 hours. For instance at noon take ibuprofen, then at 3:00 p.m. take Tylenol, then at 6:00 p.m. take ibuprofen. Please schedule an appointment for follow-up with your primary care provider this week. Return to the emergency department if you experience worsening pain, numbness, tingling, change of color in your toes, or any other concerning symptoms. If your symptoms persist beyond the next 1-2 weeks, you can follow up with orthopedics. Prescriptions: New ibuprofen 600 mg tablet 600 mg PO Q6H PRN (Reason: pain) Qty: 14 0RF No Action amoxicillin 500 mg tablet 500 mg PO BID Qty: 14 0RF amoxicillin-pot clavulanate 875-125 mg tablet 1 tab PO BID 10 Days Qty: 20 0RF prednisone 20 mg tablet 40 mg PO DAILY 5 Days Qty: 10 0RF nitrofurantoin monohyd/m-cryst [Macrobid] 100 mg capsule 100 mg PO Q12H 5 Days Qty: 10 0RF Rx Instructions: must administer with a meal/food polyethylene glycol 3350 [Miralax] 17 gram/dose powder 17 g PO DAILY Qty: 119 0RF omeprazole 40 mg capsule,delayed release(DR/EC) 40 mg PO DAILY Qty: 14 0RF Referrals: [facility] [place] Orthopedic Surgeons [Provider Group] Interventions: ED Discharge Assessment Last Done: 05/12/23 19:40
[2023-05-12 19:33] VITALS: BP 124/71; PULSE 74; RESP 16; O2SAT 98
== END 2023-05-12 19:41 | disposition home or self-care (01) ==
PROVIDERS: Emergency Provider Emergency Medicine
DX: S90.32XA Contusion of left foot, initial encounter (principal); X58.XXXA Exposure to other specified factors, initial encounter; Y93.9 Activity, unspecified; Y92.9 Unspecified place or not applicable; Y99.9 Unspecified external cause status
CPT/HCPCS: 73630; 99282; 99284

== ENCOUNTER 2023-11-14 08:01 | Emergency (ER) | payer OTHER, SELFPAY ==
--- NOTE | 2023-11-14 | ECG_ITS ---
Test Reason : CHEST PAIN Blood Pressure : / mmHG Vent. Rate : 063 BPM Atrial Rate : 063 BPM P-R Int : 176 ms QRS Dur : 098 ms QT Int : 422 ms P-R-T Axes : 060 031 002 degrees QTc Int : 431 ms Normal sinus rhythm Normal ECG No previous ECGs available Referred By: Generic ED Physician Electronically Signed By:BARBARA OLIVAS MD
[2023-11-14 08:19] VITALS: BP 117/49; PULSE 69; RESP 18; TEMP 36.9; O2SAT 100; BMI 28.0
[2023-11-14 08:23] LABS: MANUAL DIFF FLAG NO
[2023-11-14 08:25] LABS: Basophils Percent Auto 0.4 % (0-2); Eosinophils Absolute Auto 0.1 X10*3/uL (0.0-0.4); Eosinophils Percent Auto 1.8 % (0-4); Hematocrit 39.2 % (37.0-47.0); Hemoglobin 13.3 g/dl (12.0-16.0); Imm Gran Abs Auto 0.01 X10*3/uL (0.00-0.03); Imm Gran Pct Auto 0.2 % (0.0-0.4); Lymphocytes Percent Auto 22.4 % (20-40); Mean Corpuscular HGB Conc 33.9 g/dl (31.0-35.0); Mean Corpuscular Hemoglobin 31.3 pg (27.0-33.0); Mean Corpuscular Volume 92.2 fL (80.0-98.0); Mean Platelet Volume 12.2 fL (9.4-12.3); Monocytes Absolute Auto 0.4 X10*3/uL (0.1-1.2); Monocytes Percent Auto 8.3 % (2-11); Neutrophils Percent Auto 66.9 % (45-73); Platelet Count 175 X10*3/uL (160-400); Red Blood Count 4.25 X10*6/uL (4.20-5.50); Red Cell Distribution Width 12.5 % (11.0-16.0); White Blood Count 4.5 X10*3/uL (4.8-10.8)
[2023-11-14 08:38] LABS: Anion Gap 13 (12-20); Blood Urea Nitrogen 15 mg/dL (9-16); Calcium 9.6 mg/dL (8.4-10.2); Carbon Dioxide 29 mmol/L (22-29); Chloride 102 mmol/L (96-108); Estimated Glomerular Filt Rate > 60; Glucose Random 116 mg/dL (60-115); Potassium 3.8 mmol/L (3.3-5.1); Sodium 140 mmol/L (135-145)
[2023-11-14 08:49] LABS: Troponin-I High Sensitivity < 2.7 ng/L (<3.5-17.0)
== END 2023-11-14 15:52 | disposition left against medical advice (07) ==
PROVIDERS: Emergency Provider Emergency Medicine
DX: R07.9 Chest pain, unspecified (principal); Z53.21 Procedure and treatment not carried out due to patient leaving prior to being seen by health care provider
CPT/HCPCS: 36415; 80048; 84484; 85025; 93005; 99283

== ENCOUNTER → 2023-11-14 08:07 | Outpatient (BNV) | payer OTHER, SELFPAY | PROVIDERS: Visit Provider Internal Medicine Cardiovascular Disease | DX: R07.9 Chest pain, unspecified (principal) | CPT/HCPCS: 93010 ==

== ENCOUNTER 2025-01-03 06:18 | Outpatient (REF) | payer OTHER, SELFPAY ==
--- OUTSIDE RECORDS SUMMARY | 2025-01-03 06:21 | XMS_ITS | Clinical Summary ---
Author Organization [facility] Address [address] [place] [address] Phone Care Team Providers Care Car Spotter Name Role Phone Physician, Pcp Unknown Primary Care Provider Sasha vailable Allergies Active Allergy Reactions Criticality Noted Date Comments Kiwi Rash 11/29/2022 Medications No known medications Active Problems No known active problems Encounters Date Type Department Care Team Description 11/06/2024 9:55 PM EDT - 11/07/2024 7:35 AM EDT Emergency [facility] Emergency [address] [place] [address] Andre Wilde MD Chest pain, unspecified type (Primary Dx); Pleuritic chest pain Discharge Disposition: Home or Self Care from Last 3 Months Surgical History Surgery Date Site/Laterality Comments TUBAL LIGATION PROCEDURE: HISTORICAL TUBAL LIGATION SECTION PROCEDURE: HISTORICAL DELIVERY Medical History Medical History Date Comments Patient denies medical problems DX:Patient denies medical problems Family History Medical History Relation Name Comments No Known Problems Father Lymphoma Mother Thyroid disease Mother Breast cancer Neg Hx Ovarian cancer Neg Hx Relation Name Status Comments Father Alive Mother Alive Social History Tobacco Use Types Packs/Day Years Used Date Smoking Tobacco: Never Smokeless Tobacco: Never Alcohol Use Standard Drinks/Week Comments Yes 0 (1 standard drink = 0.6 oz pur e alcohol) Comments Unknown Sex and Gender Information Value Date Recorded Sex Assigned at Not on file Legal Sex Female 5:21 AM EST Gender Identity Not on file Sexual Orientation Not on file Obstetrics History Last Filed Vital Signs Vital Sign Reading Time Taken Comments Blood Pressure 106/57 11/07/2024 7:29 AM EDT Pulse 64 11/07/2024 7:29 AM EDT Temperature 36.5 C (97.7 F) 11/07/2024 7:29 AM EDT Respiratory Rate 18 11/07/2024 7:29 AM EDT Oxygen Saturation 99% 11/07/2024 7:29 AM EDT Inhaled Oxygen Concentration - - Weight 81.6 kg (180 lb) 11/06/2024 6:42 PM EDT Height 177.8 cm (5' 10 ) 11/06/2024 6:42 PM EDT Body Mass Index 25.83 11/06/2024 6:42 PM EDT Plan of Treatment Health Maintenance Due Date Last Done Comments Hepatitis A Vaccines (1 of 2 - Risk 2-dose series) 2004 Hepatitis B Vaccines (1 of 3 - 19+ 3-dose series) 2004 HPV Vaccines (3 - 3-dose SCD M series) 12/26/2019 08/09/2019, 06/27/2019 Hepatitis C Screening 05/16/2022 Social Influencers of Health Screening 05/16/2022 Cervical Cancer Screening: P ap Smear 06/27/2022 06/27/2019 COVID-19 Vaccine (4 - 2023-2 5 season) 2024 05/10/2021, 11/27/2020, 10/30/2020 Depression Screening 06/13/2024 Influenza Vaccine (#1) 2025 04/22/2022 DTaP,Tdap,and Td Vaccines (2 - Td or Tdap) 06/27/2029 06/27/2019 HIV Screening Completed 08/11/2020 HIB Vaccines Aged Out No longer eligi ble based on patient's age to complete this topic IPV Vaccines Aged Out No longer eligi ble based on patient's age to complete this topic MMR Vaccines Aged Out No longer eligi ble based on patient's age to complete this topic Meningococcal ACWY Vaccine Aged Out N o longer eligible based on patient's age to complete this topic Meningococcal B Vaccine Aged Out No l onger eligible based on patient's age to complete this topic Pneumococcal Vaccine: Pediatrics (0 to 5 Years) and At-Risk Patients (6 to 49 Years) Aged Out No longer eligible b ased on patient's age to complete this topic RSV Immunization Patients Under 20 months Aged Out No longer eligible b ased on patient's age to complete this topic Varicella Vaccines Aged Out No longer eligible based on patient's age to complete this topic Procedures Procedure Name Priority Date/Time Associated Diagnosis Comments CT ANGIO CHEST WO AND/OR W CONTRAST STAT 11/07/2024 3:00 AM EDT Pleuritic chest pain D-DIMER STAT 11/07/2024 12:05 AM EDT TROPONIN I HIGH SENSITIVITY STAT 11/07/2024 12:05 AM EDT ECG ANNOTATED 11/07/2024 XR CHEST 2 VIEWS STAT 11/06/2024 11:5 6 PM EDT HCG, SERUM, QUALITATIVE STAT Add-on 11/06/2024 7:45 PM EDT CBC WITH AUTO DIFFERENTIAL STAT 11/06/2024 7:45 PM EDT B-TYPE NATRIURETIC PEPTIDE STAT 11/06/2024 7:45 PM EDT MAGNESIUM STAT 11/06/2024 7:45 PM EDT LIPASE STAT 11/06/2024 7:45 PM EDT COMPREHENSIVE METABOLIC PANEL STAT 11/06/2024 7:45 PM EDT CBC AND DIFFERENTIAL STAT 11/06/2024 7:45 PM EDT TROPONIN I HIGH SENSITIVITY STAT 11/06/2024 7:45 PM EDT ECG 12-LEAD STAT 11/06/2024 6:37 PM EDT from Last 3 Months Results * CT Angio Chest wo and/or w Contrast (11/07/2024 3:00 AM EDT) Anatomical Region Laterality Modality Body Computed Tomogra phy 11/07/2024 7:08 AM EDT Impressions 11/07/2024 7:08 AM EDT 1. No pulmonary emboli. This document has been electronically signed by: Christine Shepherd MD on 11/07/2024 07:08:54 Narrative 11/07/2024 7:08 AM EDT INDICATION: PE suspected, high prob CT angiography chest with contrast. 3D Postprocessing. Comparison: None Findings: The heart size is normal. RV/LV ratio is normal. No aneurysm. No acute pulmonary embolus. The visualized thyroid and mediastinum are unremarkable. The lungs are clear. The upper abdomen is unremarkable. The bones are intact. Procedure Note Christine Shepherd MD - 11/07/2024 INDICATION: PE suspected, high prob CT angiography chest with contrast. 3D Postprocessing. Comparison: None Findings: The heart size is normal. RV/LV ratio is normal. No aneurysm. No acute pulmonary embolus. The visualized thyroid and mediastinum are unremarkable. The lungs are clear. The upper abdomen is unremarkable. The bones are intact. IMPRESSION: 1. No pulmonary emboli. This document has been electronically signed by: Christine Shepherd MD on 11/07/2024 07:08:54 Andre Wilde MD [facility] CT PROCEDURES Final Result * Troponin I high sensitivity (11/07/2024 12:05 AM EDT) Only the most recent of2 resultswithin the time period is included. High Sensitivity Troponin I <3 <=54 ng/L LAB CHEMISTRY METHOD 11/07/2024 12:39 AM EDT [facility] Blood Venous blood specimen / Unknown Venipuncture / Unknown 11/07/2024 12:05 AM EDT 11/07/2024 12:15 AM EDT Narrative [facility] - 11/07/2024 12:39 AM EDT High levels of biotin in samples may falsely decrease hsTroponin values. Use caution when interpreting hsTroponin results in patients taking biotin who exhibit renal impairment (eGFR <60) or in patients taking more than 20 mg/day of biotin. us Andre Wilde MD LAB BLOOD ORDERABLES Final Resu lt Performing Organization Address [facility]/[place] de Phone Number [facility] [address] [place] [address], * D-Dimer (Quantitative) (11/07/2024 12:05 AM EDT) D-Dimer, Quant (D-DU) <150 <=230 ng/mL DDU LAB COAGULATION METHOD 11/07/2024 12:35 AM EDT [facility] Blood Venous blood specimen / Unknown Venipuncture / Unknown 11/07/2024 12:05 AM EDT 11/07/2024 12:15 AM EDT Narrative [facility] - 11/07/2024 12:35 AM EDT D-Dimer <230 ng/mL (D-Dimer units) is the threshold for exclusion of DVT/PE. D-Dimer may be elevated in: Critically ill, severely infected, trauma patients, DIC, acute CVA, acute TX, unstable angina, AF, old age, , and smoking. D-Dimer may be decreased with: Initiation of heparin therapy and oral anticoagulants. Andre Wilde MD LAB BLOOD ORDERABLES Final Resu lt Performing Organization Address [facility] de Phone Number [facility] [address] [place] [address], [place] [phone] * ECG-Annotated (11/07/2024) Provider Onbase ECG ORDERABLES Final Result * XR Chest 2 Views (11/06/2024 11:56 PM EDT) Anatomical Region Laterality Modality Body Radiographic Jennifer ging 11/07/2024 2:40 AM EDT Impressions 11/07/2024 2:40 AM EDT FINDINGS/IMPRESSION: Normal heart size and pulmonary vascularity. Lungs are clear and costophrenic angles are sharp. No acute osseous abnormality. -------- FINAL REPORT -------- Dictated By: Roger Romero Dictated Date: 11/07/2024 02:40 ET Assigned Physician: Roger Romero Reviewed and Electronically Signed By: Roger Romero Signed Date: 11/07/2024 02:40 ET Workstation ID: [id number] Transcribed By: Self Edit Transcribed Date: 11/07/2024 02:40 ET Narrative 11/07/2024 2:40 AM EDT XR CHEST 2 VIEWS INDICATION: chest pain TECHNIQUE: XR CHEST 2 VIEWS COMPARISON: No priors available. Procedure Note Roger Romero MD - 11/07/2024 XR CHEST 2 VIEWS INDICATION: chest pain TECHNIQUE: XR CHEST 2 VIEWS COMPARISON: No priors available. IMPRESSION: FINDINGS/IMPRESSION: Normal heart size and pulmonary vascularity. Lungsare clear and costophrenic angles are sharp. No acute osseousabnormality. -------- FINAL REPORT -------- Dictated By: Roger Romero Dictated Date: 11/07/2024 02:40 ET Assigned Physician: Roger Romero Reviewed and Electronically Signed By: Roger Romero Signed Date: 11/07/2024 02:40 ET Workstation ID: [id number] Transcribed By: Self Edit Transcribed Date: 11/07/2024 02:40 ET [facility] Derek Wilde MD IMG XR PROCEDURES Final Result * (ABNORMAL) CBC auto differential (11/06/2024 7:45 PM EDT) WBC 6.3 4.8 - 10.8 K/mcL LAB HEMETOLOGY METHOD 11/06/2024 8:14 PM EDT [facility] RBC 3.80 3.80 - 4.80 M/mcL LAB HEMETOLOGY METHOD 11/06/2024 8:14 PM EDT [facility] Hemoglobin 11.9 11.5 - 16.0 g/dL LAB HEMETOLOGY METHOD 11/06/2024 8:14 PM EDT [facility] Hematocrit 36.1 35.0 - 47.0 % LAB HEMETOLOGY METHOD 11/06/2024 8:14 PM EDT [facility] MCV 94.0 79.0 - 98.0 FL LAB HEMETOLOGY METHOD 11/06/2024 8:14 PM EDT [facility] MCH 31.0 27.0 - 32.0 pcg LAB HEMETOLOGY METHOD 11/06/2024 8:14 PM EDT [facility] MCHC 33.0 32.0 - 37.0 g/dL LAB HEMETOLOGY METHOD 11/06/2024 8:14 PM EDT [facility] RDW 13.0 11.0 - 15.0 % LAB HEMETOLOGY METHOD 11/06/2024 8:14 PM EDT [facility] Platelets 178 130 - 400 K/mcL LAB HEMETOLOGY METHOD 11/06/2024 8:[facility] MPV 12.5(H) 7.0 - 11.0 FL LAB HEMETOLOGY METHOD 11/06/2024 8:14 PM EDT [facility] NRBC 0.0 <1.0 % LAB HEMETOLOGY METHOD 11/06/2024 8:14 [facility] NRBC Absolute 0.00 <0.10 K/mcL LAB HEMETOLOGY METHOD 11/06/2024 8:14 PM [facility] Neutrophils Relative 64.6 % LAB HEMETOLOGY METHOD 11/06/2024 8:14 PM EDT [facility] Lymphocytes Relative 22.1 % LAB HEMETOLOGY METHOD 11/06/2024 8:14 PM EDT [facility] Monocytes Relative 10.3 % LAB HEMETOLOGY METHOD 11/06/2024 8:14 PM EDT [facility] Eosinophils Relative 2.2 % LAB HEMETOLOGY METHOD 11/06/2024 8:14 PM EDT [facility] Basophils Relative 0.5 % LAB HEMETOLOGY METHOD 11/06/2024 8:14 PM EDT [facility] Immature Granulocytes Relative 0.3 % LAB HEMETOLOGY METHOD 11/06/2024 8:14 PM EDT [facility] Neutrophils Absolute 4.07 1.50 - 7.00 K/mcL LAB HEMETOLOGY METHOD 11/06/2024 8:14 PM EDT [facility] Lymphocytes Absolute 1.39 1.00 - 5.00 K/mcL LAB HEMETOLOGY METHOD 11/06/2024 8:14 PM EDT [facility] Monocytes Absolute 0.65 0.20 - 1.00 K/mcL LAB HEMETOLOGY METHOD 11/06/2024 8:14 PM EDT [facility] Eosinophils Absolute 0.14 0.00 - 0.50 K/mcL LAB HEMETOLOGY METHOD 11/06/2024 8:14 PM EDT [facility] Basophils Absolute 0.03 0.00 - 0.20 K/mcL LAB HEMETOLOGY METHOD 11/06/2024 8:14 PM EDT [facility] Immature Granulocytes Absolute 0.02 0.00 - 0.03 K/mcL LAB HEMETOLOGY METHOD 11/06/2024 8:14 PM EDT [facility] Blood Venous blood specimen / Unknown Venipuncture / Unknown 11/06/2024 7:45 PM EDT 11/06/2024 8:04 PM EDT us Andre Wilde MD LAB BLOOD ORDERABLES Final Resu lt [facility] [address] [place] [address], * hCG, serum, qualitative (11/06/2024 7:45 PM EDT) hCG Qual Negative Negative 11/06/2024 11:50 PM EDT [facility] Blood Venous blood specimen / Unknown Venipuncture / Unknown 11/06/2024 7:45 PM EDT 11/06/2024 8:04 PM EDT us Andre Wilde MD LAB BLOOD ORDERABLES Final Resu lt Performing Organization Address [facility]/ZIP Co de Phone Number [facility] [address] [place] [address], [place] [phone] * B-type natriuretic peptide (11/06/2024 7:45 PM EDT) BNP 12 <=100 pcg/mL LAB CHEMISTRY METHOD 11/06/2024 8:37 PM EDT [facility] Blood Venous blood specimen / Unknown Venipuncture / Unknown 11/06/2024 7:45 PM EDT 11/06/2024 8:04 PM EDT us Andre Wilde MD LAB BLOOD ORDERABLES Final Resu lt Performing Organization Address [facility]/ZIP Co de Phone Number [facility] [address] [place] [address], [place] [phone] * Magnesium (11/06/2024 7:45 PM EDT) Magnesium 2.1 1.9 - 2.6 mg/dL LAB CHEMISTRY METHOD 11/06/2024 8:40 PM EDT [facility] Blood Venous blood specimen / Unknown Venipuncture / Unknown 11/06/2024 7:45 PM EDT 11/06/2024 8:04 PM EDT us Andre Wilde MD LAB BLOOD ORDERABLES Final Resu lt Performing Organization Address City/[facility]/ZIP Co de Phone Number [facility] [address] [place] [address], [place] [phone] * Lipase (11/06/2024 7:45 PM EDT) Lipase 43 13 - 75 unit/L LAB CHEMISTRY METHOD 11/06/2024 8:40 PM EDT [facility] Blood Venous blood specimen / Unknown Venipuncture / Unknown 11/06/2024 7:45 PM EDT 11/06/2024 8:04 PM EDT Andre Wilde MD LAB BLOOD ORDERABLES Final Resu lt [facility] [address] [place] [address], [place] [phone] * Comprehensive metabolic panel (11/06/2024 7:45 PM EDT) Pathologist [facility] Sodium 136 133 - 145 mmol/L LAB CHEMISTRY METHOD 11/06/2024 8:40 PM [facility] Potassium 3.5 3.5 - 5.5 mmol/L LAB CHEMISTRY METHOD 11/06/2024 8:40 PM [facility] Chloride 104 96 - 110 mmol/L LAB CHEMISTRY METHOD 11/06/2024 8:40 PM T [facility] CO2 27 21 - 32 mmol/L LAB CHEMISTRY METHOD 11/06/2024 8:40 PM [facility] Anion Gap 5 3 - 11 LAB CHEMISTRY METHOD 11/06/2024 8:40 PM [facility] Glucose 91 70 - 100 mg/dL LAB CHEMISTRY METHOD 11/06/2024 8:40 PM [facility] BUN 18 5 - 25 mg/dL LAB CHEMISTRY METHOD 11/06/2024 8:40 PM [facility] Creatinine 0.79 0.50 - 1.10 mg/dL LAB CHEMISTRY METHOD 11/06/2024 8:40 PM [facility] eGFR 98 >=60 mL/min/1. 73m2 LAB CHEMISTRY METHOD 11/06/2024 8:40 PM EDT [facility] Comment:Calculation based on the Chronic Kidney Disease Epidemiology Collaboration (CKD-EPI) equation refit without adjustment for race. BUN/Creatinine Ratio 22.8 LAB CHEMISTRY METHOD 11/06/2024 8:40 PM EDT [facility] Calcium 9.1 8.5 - 10.5 mg/dL LAB CHEMISTRY METHOD 11/06/2024 8:40 PM EDT [facility] AST (SGOT) 12 10 - 42 unit/L LAB CHEMISTRY METHOD 11/06/2024 8:40 PM EDT [facility] ALT (SGPT) 21 10 - 60 unit/L LAB CHEMISTRY METHOD 11/06/2024 8:40 PM EDT [facility] Alkaline Phosphatase 59 42 - 121 unit/L LAB CHEMISTRY METHOD 11/06/2024 8:40 PM [facility] Total Protein 6.7 6.0 - 8.0 g/dL LAB CHEMISTRY METHOD 11/06/2024 8:40 PM EDT [facility] Albumin 3.7 3.2 - 5.0 g/dL LAB CHEMISTRY METHOD 11/06/2024 8:40 PM EDT [facility] Total Bilirubin 0.2 0.0 - 1.4 mg/dL LAB CHEMISTRY METHOD 11/06/2024 8:40 PM T [facility] Blood Venous blood specimen / Unknown Venipuncture / Unknown 11/06/2024 7:45 PM EDT 11/06/2024 8:04 PM EDT us Andre Wilde MD LAB BLOOD ORDERABLES Final Resu lt [facility] [address] [place] [address], * ECG 12 lead (11/06/2024 6:37 PM EDT) Ventricular Rate ECG 63 BPM GEMUSE Atrial Rate 63 BPM GEMUSE P-R Interval 188 ms GEMUSE QRS Duration 100 ms GEMUSE Q-T Interval 402 ms GEMUSE QTc 411 ms GEMUSE P Wave [place] 62 degrees GEMUSE R [place] 31 degrees GEMUSE T [place] 8 degrees GEMUSE ECG Interpretation Normal sinus rhythm Possible Left atrial enlargement Borderline ECG No previous ECGs available Confirmed by David HERNANDEZ YUFENG ([id number]) on 11/08/2024 7:33:21 PM GEMUSE 11/06/2024 6:37 PM EDT 11/08/2024 7:33 PM EDT Karl Alvarenga MD ECG ORDERABLES Final Result GEMUSE from Last 3 Months Insurance [facility] [employer] Care Teams Car Spotter Relationship Specialty Start Date End Date Physician, Pcp Unknown PCP - General 11/07/24
--- OUTSIDE RECORDS SUMMARY | 2025-01-03 06:21 | XMS_ITS | Clinical Summary ---
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 Positive ASCUS Negative HPV. Pt referred to Student Life Advisor. Assessment & Plan (01/02/2025 3:36 PM EDT): Previously followed by [facility] GOLF CART ATTENDANT, we will obtain Pap smear records and follow-up at next visit Fibrocystic changes of right breast 06/27/2019 Assessment & Plan (01/02/2025 3:35 PM EDT): Relevant results of breast biopsy and last mammogram. 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 Check TSH and follow-up at next visit or earlier as needed. Hepatitis C 09/26/2018 Overview (01/01/2025): Per previous PCP. At age 16 - was treated for 6 months. Assessment & Plan (01/02/2025 3:35 PM EDT): Reportedly treated at age 16 Order HCV viral load, HIV, AFP, hepatitis profile and LFTs Allergic rhinitis 08/22/2018 Encounters Date Type Department Care Team Description 01/01/2025 10:45 AM EDT Office Visit [facility] [address] [place] [phone] Karyn Hutchinson MD Graciela's disease (Primary Dx); Hepatitis C virus infection without hepatic coma, unspecified chronicity; Fibrocystic changes of right breast; Atypical squamous cell changes of undetermined significance (ASCUS) on cervical cytology with negative high risk human papilloma virus (HPV) test result 01/01/2025 Travel 12/29/2024 Telephone [facility] [address] [place] [address] Karyn Hutchinson MD Chart Prep 12/24/2024 Patient Outreach [facility] [address] [place] [address] Karyn Hutchinson MD Pre-visit Planning ((Unable to reach for PVP screening and or LVM) to be completed in office) from Last 3 Months Family History Medical History Relation Name Comments htn Father Hypothyroidism Mother Lymphoma Mother on 2012 hcv Mother vascular dementia Mother Relation Name Status Comments Father Mother Social History Tobacco Use Types Packs/Day Years Used Date Smoking Tobacco: Never Smokeless Tobacco: Never Tobacco Cessation:Counseling Given: Not Answered Alcohol Use Standard Drinks/Week Comments Never 0 (1 standard drink = 0.6 oz pur e alcohol) Depression Answer Date Recorded Patient Health Questionnaire-9 Score 8 01/01/2025 Patient Health Questionnaire-9 Score 8 01/01/2025 Last PHQ-9: Questionnaire Data Not on file 0 01/01/2025 Housing Stability Answer Date Recorded What is your housing situation today? I have bobby moralez 01/01/[address] you li ve. Do you have problems with any of the following? None of the above 01/01/2025 Food Insecurity Answer Date Recorded Within the past 12 months, y ou worried that your food would run out before you got money to buy more: Never True 01/01/2025 Within the past 12 months,th e food you bought just didn't last and you didn't have enough money to get more: Never True Transportation Answer Date Recorded In the past 12 months, has l ack of transportation kept you from medical appts, meetings, work or from getting things needed for daily living? No 01/01/2025 Utilities Answer Date Recorded In the past 12 months, has t he electric, gas, oil or water company threatened to shut off services in your home? No 01/01/2025 Depression Answer Date Recorded Patient Health Questionnaire-2 Score 2 01/01/2025 Internet Access Answer Date Recorded Internet Access Q1 Yes 01/01/2025 Internet Access Q2 Not on file 01/01/2025 Comments No Sex and Gender Information Value Date Recorded Sex Assigned at Female 04/12/2022 10:34 AM EDT Legal Sex Female 10:34 AM EDT Gender Identity Choose not to disclose 10:16 AM EDT Sexual Orientation Straight 12/31/2024 10 :17 AM EDT Last Filed Vital Signs Vital Sign Reading Time Taken Comments Blood Pressure 122/68 01/01/2025 10:47 AM EDT Pulse 68 01/01/2025 10:47 AM EDT Temperature 36.4 C (97.5 F) 01/01/2025 10:47 AM EDT Respiratory Rate 24 01/01/2025 10:47 AM EDT Oxygen Saturation - - Inhaled Oxygen Concentration - - Weight 84.4 kg (186 lb) 01/01/2025 10:47 AM EDT Height 177.8 cm (5' 10 ) 01/01/2025 10:47 AM EDT Body Mass Index 26.69 01/01/2025 10:47 AM EDT Plan of Treatment Upcoming Encounters Date Type Department Care Team (Late st Contact Info) Description 02/18/2025 1:15 PM EDT Telemedicine [facility] [address] [place] [address] Karyn Hutchinson MD [address] [place], [place] [phone] Health Maintenance Due Date Last Done Comments Family Planning (PISQ) 2000 Hepatitis A Vaccines (1 of 2 - Risk 2-dose series) 2004 Hepatitis B Vaccines (1 of 3 - 19+ 3-dose series) 2004 Pap Smear 2006 Cervical Cancer Screening 2015 HPV/Cotest 2015 HPV Vaccines (3 - 3-dose series) 12/26/2019 08/09/2019, 08/09/2019, 06/27/2019, Additional history exists COVID-19 Vaccine ( season) 2024 05/10/2021, 11/27/2020, 10/30/2020 Influenza Vaccine (#1) 2025 04/22/2022, 2021 Alcohol/Substance Use Screening 01/01/2026 01/01/2025 Depression Screening 01/01/2026 01/01/2025, 01/02/20 25 Disability Screening 01/01/2026 01/01/2025 SDOH Screening 01/01/2026 01/01/2025 Tobacco Screening 01/01/2026 01/01/2025 DTaP/Tdap/Td Vaccines (2 - Td or Tdap) 06/27/2029 06/27/2019 Zoster Vaccines (1 of 2) 2035 RSV Patients and Patients Aged 60 years or older (1 - 1-dose 75+ series) 2060 HIV Screening Completed 08/11/2020 HIB Vaccines Aged Out No longer eligi ble based on patient's age to complete this topic IPV Vaccines Aged Out No longer eligi ble based on patient's age to complete this topic Meningococcal B Vaccine Aged Out No l onger eligible based on patient's age to complete this topic Meningococcal Vaccine Aged Out No arelis liset eligible based on patient's age to complete this topic Pneumococcal Vaccine: Pediatrics (0 to 5 Years) and At-Risk Patients (6 to 49) Years Aged Out No longer eligible based on patient's age to complete this topic RSV under 20 months Aged Out No longe r eligible based on patient's age to complete this topic Rotavirus Vaccines Aged Out No longer eligible based on patient's age to complete this topic Insurance Care Teams Weaving Instructor Relationship Specialty Start Date End Date Karyn Hutchinson MD [address] [place] [id number] PCP - General Internal Medicine 01/01/25
--- OUTSIDE RECORDS SUMMARY | 2025-01-03 06:21 | XMS_ITS | Clinical Summary ---
Author Organization [facility] Address [address] [place] [address] Care Team Providers Care Equine Dentist Name Role Phone Unavailable Primary Care Provider Unavailabl e Source Comments PLEASE NOTE, if this patient is a minor, it may be UNLAWFUL to discuss sensitive information that is contained in these records (such as FAMILY PLANNING, MENTAL HEALTH or SUBSTANCE ABUSE) with the minor patient's parent or other person without the patient's specific authorization.[facility] Allergies No known active allergies Medications albuterol sulfate 90 mcg/actuation inhalerIndicatio ns:Chronic non-seasonal allergic rhinitis Inhale 2 Puffs into the lungs every 4 to 6 (four to six) hours as needed for shortness of breath 18 g 2 0 Active metroNIDAZOLE (FLAGYL) 500 mg tabletIndication s:Bacterial vaginosis Take 1 Tablet by mouth 2 (two) times daily 14 Tablet 1 Active dextromethorphan -guaifenesin (HUMIBID DM) 30-600 mg per 12 hr tabletIndication s:Cough,Fever and chills Take 1 Tablet by mouth 2 (two) times daily 20 Tablet 1 Active diclofenac sodium (VOLTAREN) [address] tabletIndication s:Acute non intractable tension-type headache Take 1 Tablet by mouth 2 (two) times daily 60 Tablet 1 Active ketotifen fumarate (ZADITOR) 0.025 % (0.035 %) ophthalmic solutionIndicati ons:Blurring of visual image of both eyes Place 1 Drop into both eyes 2 (two) times daily 5 mL 2 1 Active Active Problems Problem Noted Date Diagnosed Date Allergic rhinitis 02/19/2020 Atypical squamous cell aguayo es of undetermined significance (ASCUS) on cervical cytology with negative high risk human papilloma virus (HPV) test result 07/05/2019 Overview (07/05/2019): 06/2019. Positive ASCUS Negative HPV. Pt referred to Plant Utility Person. Fibrocystic changes of right breast 06/27/2019 H/O tubal ligation 06/27/2019 Overview (06/27/2019): 07/24/2011 H/O abnormal cervical Papanicolaou smear 019 Overview (09/26/2018): 2004, per previous PCP. 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 At age 16 - was treated for 6 months. Non-seasonal allergic rhinitis 08/22/2018 Breast mass in female 08/22/2018 Overview (09/12/2018): 09/08/18 Mammo and U/S at [facility] normal, BIRADS 1 It band syndrome, left 08/22/2018 Immunizations Immunization Administration Dates Next Due HPV 9 (Gardasil) 08/09/2019,06/27/2019 TDAP 06/27/2019 Family History Medical History Relation Name Comments No Known Problems Brother 1 No Known Problems Brother 2 No Known Problems Brother 3 No Known Problems Brother 4 No Known Problems Daughter No Known Problems Father Cancer Maternal Aunt Breast CA Cancer Mother leukemia Liver disease Mother Cirrhosis No Known Problems Sister 1 No Known Problems Sister 2 Asthma Son 1 No Known Problems Son 2 Diabetes Neg Heart Problems Neg Relation Name Status Comments Brother 1 Alive Brother 2 Alive Brother 3 Alive Brother 4 Alive Daughter Alive Father Alive Maternal Aunt Alive Mother Alive Sister 1 Alive Sister 2 Alive Son 1 Alive Son 2 Alive Social History Tobacco Use Types Packs/Day Years Used Date Smoking Tobacco: Never Smokeless Tobacco: Never Alcohol Use Standard Drinks/Week Comments Yes 0 (1 standard drink = 0.6 oz pur e alcohol) Occassional Social Connections Answer Date Recorded Connectedness 0 02/19/2024 Financial Resource Strain Answer Date R ecorded Financial Resource Strain 0 2018 Stress Answer Date Recorded Stress 0 02/05/2019 Physical Activity Answer Date Recorded Physical Activity 0 02/05/2019 Food Insecurity Answer Date Recorded Food 0 03/08/2024 Transportation Needs Answer Date Record ed Transportation 0 02/05/2019 Housing Stability Answer Date Recorded Housing 0 02/05/2019 Safety and Environment Answer Date Alvino rded Safety 0 01/26/2021 Utilities Answer Date Recorded Utilities 0 02/05/2019 Employment Answer Date Recorded Employment 0 02/05/2019 Comments No Sex and Gender Information Value Date Recorded Sex Assigned at Female 08/22/2018 10:31 AM PDT Legal Sex Female 11:26 AM PST Gender Identity Female 08/22/2018 10:31 AM PDT Sexual Orientation Straight 11/20/2020 11 :28 AM PDT Last Filed Vital Signs Vital Sign Reading Time Taken Comments Blood Pressure 102/64 05/12/2021 3:23 PM EST Pulse 84 05/12/2021 3:23 PM EST Temperature 37.2 C (99 F) 05/12/2021 3:23 PM EST Respiratory Rate 18 05/12/2021 3:23 PM EST Oxygen Saturation 99% 05/12/2021 3:23 PM EST Inhaled Oxygen Concentration - - Weight 83 kg (183 lb) 05/12/2021 3:23 PM EST Height 172.7 cm (5' 8 ) 05/12/2021 3:23 PM EST Body Mass Index 27.83 05/12/2021 3:23 PM EST Plan of Treatment Health Maintenance Due Date Last Done Comments Anxiety Screening 1985 HPV Screening 1985 Pap + HPV 1985 Tobacco Screening 1985 Imm-Hepatitis B (1 of 3 - 19 + 3-dose series) 2004 Annual Wellness (Adult): Ind icated (All Coverage) 08/23/2019 08/22/2018 Breast Diagnostic Imaging 10/08/20212020, 09/08/2018, 09/08/2018 Relationship Safety Screening/Counseling 01/26/2022 01/26/2021, 05/30/2020 Cervical Cancer Screening 06/27/2022 Pap Smear 06/27/2022 06/27/2019 Diabetes Screening 08/12/2023 08/11/2020, 08/23/2018 [id number] ( season) 2024 Hypertension Screening (#1) 05/11/2024 Alcohol and Drug Screen 06/13/2024 01/27/20 21, 05/30/2020, 08/22/2018 Depression Annual Screen 06/13/2024 01/26/2021 Imm-Influenza (#1) 2025 Imm-DTaP/Tdap/Td (2 - Td or Tdap) 06/27/2029 020 HIV Screening Completed 08/11/2020, 06/27/2019 Cervical Ablation/Cold-Knife Conization Discontinued Cervical Cryotherapy Discontinued Colposcopy Discontinued Endometrial Biopsy Discontinued Excision/Leep Discontinued HPV Genotyping Discontinued Vaginal Pap Discontinued Vulvoscopy Discontinued Procedures Procedure Name Priority Date/Time Associated Diagnosis Comments ANTIBODY HIV-1&HIV-2 SINGLE RESULT Routine 08/11/2020 11:20 AM EST Vaginal discharge COMPREHENSIVE METABOLIC PANEL Routine 08/11/2020 11:20 AM EST Flank pain PAP, LIQUID BASED Routine 06/27/2019 9:2 9 AM EST Encounter for gynecological examination with Papanicolaou smear of cervix MAMMOGRAM BI-RADS, ABSTRACTED Routine 09/08/2018 from Last 3 Months or Most Recently Relevant to Health Maintenance Results * HIV-1 & HIV-2 ANTIBODIES (08/11/2020 11:20 AM EST) [facility] HIV 1 AND 2 ANTIBODY SCREEN NEGATIVE NEGATIVE [employer] Comment: This assay is a 4th generation assay allowing for earlier detection of HIV infection by detecting the presence of the HIV-1 p24 antigen as well as the traditional antibodies to HIV type 1 (including group O) and type 2. Use of a 4th generation assay is the current CDC recommendation for HIV screening. Blood Blood / Unknown 08/11/2020 1 1:20 AM EST 08/11/2020 3:46 PM EST Narrative [facility] - 08/11/2020 5:44 PM EST [employer], a member of [address] [place] [address] [employer] Instrument Repairer - Florinda Barragan MD PT ID [id number] ORD# [id number] Eliud Masha YAÑEZ LAB - BLOOD DRAW Final Result [facility] [address] [place] [address], * COMPRE METAB PANEL (CMP) (08/11/2020 11:20 AM EST) GLUCOSE 76 70 - 100 mg/dL [facility] Comment:Reference range appl icable to fasting specimens only BUN 12 5 - 25 mg/dL [facility] CREAT 0.89 0.5 - 1.1 mg/dL [facility] GLOMERULAR FILTRATION RATE > 60 [facility] Comment: If patient is -Fijian, multiply result by 1.21 Chronic Kidney Disease: < 60 ml/min/1.73 square meters Kidney Failure: < 15 ml/min/1.73 square meters SODIUM 138 135 - 145 mEq/L [facility] POTASSIUM 3.8 3.5 - 5.5 mmol/L [facility] CHLORIDE 104 96 - 110 mmol/L [facility] CO2 28 21 - 32 mmol/L [facility] ANION GAP 6 3 - 11 [facility] CALCIUM 9.4 8.5 - 10.5 mg/dL [facility] TOTAL PROTEIN 6.8 6.0 - 8.0 G/dL [facility] ALBUMIN 3.9 3.2 - 5.0 G/dL [facility] BILI, TOTAL 0.2 0.0 - 1.4 mg/dL [facility] SGOT 16 10 - 42 U/L [facility] SGPT 26 10 - 60 U/L [facility] ALK PHOS 63 42 - 121 U/L [facility] Blood Blood / Unknown 08/11/2020 1 1:20 AM EST 08/11/2020 3:46 PM EST Narrative [facility] - 08/11/2020 4:57 PM EST [employer], a member of [address] [address] [employer] Instrument Repairer - Florinda Barragan MD PT ID [id number] ORD# [id number] Eliud Flanagan PA-C LAB - BLOOD DRAW Edited Resul t - Final Performing Organization Address [facility]/ZIP Co de Phone Number [employer] [address], * (ABNORMAL) PAP, LIQUID BASED (06/27/2019 9:29 AM EST) Specimen from uterine cervix (specimen) Cervix uteri structure / Unknown 06/27/2019 9:29 AM EST Narrative [facility] - 07/05/2019 1:02 PM EST Positive ASCUS Negative HPV Dorota PEREZ LAB - PATHOLOGY AND CYTOLOG Y AMBULATORY Final Result Performing Organization Address [facility] Co de Phone Number [facility] [address] [address], * MAMMOGRAM BI-RADS, ABSTRACTED (09/08/2018) Anatomical Region Laterality Modality Other Provider Emil MARTINEZ MAMMO Final Result from Last 3 Months or Most Recently Relevant to Health Maintenance Insurance [employer]
[2025-01-03 07:41] LABS: Alanine Aminotransferase 21 U/L (0-31); Albumin Level 4.3 g/dL (3.5-5.0); Alkaline Phosphatase 47 U/L (39-117); Aspartate Amino Transferase 23 U/L (5-31); Cholesterol 198 mg/dL (<200); Gamma Glutamyl Transpeptidase 13 U/L (7-33); HDL Cholesterol 53 mg/dL (>40); Total Protein 6.7 g/dL (6.5-8.0); Triglycerides 101 mg/dL (<150)
[2025-01-03 08:02] LABS: Syphilis Screen Nonreactive (Nonreactive)
[2025-01-03 08:55] LABS: Reflex LDLD? No
[2025-01-04 16:38] LABS: HCV Log PCR <1.18 NOT DETECTED Log IU/mL (NOT DETECTED); HepC Viral Load <15 NOT DETECTED IU/mL (NOT DETECTED)
== END 2025-01-03 06:19 | disposition home or self-care (01) ==
LOC: HO.LAB 06:18
PROVIDERS: PCP Internal Medicine; Visit Provider Internal Medicine
DX: Z11.3 Encounter for screening for infections with a predominantly sexual mode of transmission (principal); N60.11 Diffuse cystic mastopathy of right breast; E06.3 Autoimmune thyroiditis; B19.20 Unspecified viral hepatitis C without hepatic coma
CPT/HCPCS: 36415; 80061; 80076; 82105; 82306; 82977; 84443; 86780; 87522

== ENCOUNTER 2025-02-20 12:50 | Outpatient (REF) | payer OTHER, SELFPAY ==
--- OUTSIDE RECORDS SUMMARY | 2025-02-18 13:15 | XMS_ITS | Encounter Summary ---
Author Organization [employer] Address [address] [facility] [address] [place] [address] Care Team Providers Care Engagement Manager Name Role Phone Karyn Hutchinson MD Primary Care Provider + Encounter Details Date Type Department Care Team ([facility] st Contact Info) Description 02/18/2025 1:15 PM EDT Telemedicine [facility] [address] [place], [place] [id number] Karyn Hutchinson MD [address] [place] [address] Epigastric pain (Primary Dx); Graciela's disease; High gamma glutamyl transferase (GGT) Social History Tobacco Use Types Packs/Day Years Used Date Smoking Tobacco: Never Smokeless Tobacco: Never Alcohol Use Standard Drinks/Week Comments Never 0 [...] Q2 Not on file 01/01/2025 Comments No Intention Date Recorded No desire to become (finding) 0 02/18/2025 Sex and Gender Information Value Date Recorded Sex Assigned at Female 04/12/2022 10:34 AM EDT Legal Sex Female 10:34 AM EDT Gender Identity Choose not to disclose 10:16 AM EDT Sexual Orientation Straight 12/31/2024 10 :17 AM EDT documented as of this encounter Progress Notes * Karyn Hutchinson MD - 02/18/2025 1:15 PM EDT SUBJECTIVE: Yon Liz is a 39 y.o. year old adult who presents for follow up labs. Denies recent illness, injury, or hospitalization. Labs on 01/03/2025 showed high AFP (history HCV treated 10+ years ago), normal TSH, vitamin D, GGT, LFTs and CBC. She had KARYN abdominal ultrasound on 01/20/2025 ([facility] ED visit due to RUQ pain) that showing normal liver and normal flow in the main portal vein, normal gallbladder and ducts and pancreas. She continues with LUQ pain associated to nausea and tiredness on/off, denies diarrhea, constipation, appetite is normal. LMP 01/24/2025, she has BTL Acute Concerns: Social History Social History Narrative Not on file Problem List[1] Family History[2] Review of Systems Constitutional: Negative for chills, fatigue and fever. HENT: Negative for congestion, ear pain, nosebleeds, rhinorrhea, sinus pressure, sore throat and trouble swallowing. Eyes: Negative for pain and discharge. Respiratory: Negative for cough, chest tightness and shortness of breath. Cardiovascular: Negative for chest pain, palpitations and leg swelling. Gastrointestinal: Negative for abdominal pain, blood in stool, constipation, diarrhea and nausea. Endocrine: Negative for polydipsia and polyuria. Genitourinary: Negative for dysuria, frequency, genital sores, pelvic pain and vaginal discharge. Musculoskeletal: Negative for back pain and neck pain. Skin: Negative for rash. Allergic/Immunologic: Negative for environmental allergies. Neurological: Negative for dizziness, seizures, weakness, light-headedness and headaches. Hematological: Negative for adenopathy. Psychiatric/Behavioral: Negative for agitation, behavioral problems, self-injury and suicidal ideas. OBJECTIVE: There were no vitals filed for this visit. Physical Exam HENT: Right Ear: Tympanic membrane and ear canal normal. Left Ear: Tympanic membrane and ear canal normal. Mouth/Throat: Mouth: Mucous membranes are moist. Pharynx: No oropharyngeal exudate or posterior oropharyngeal erythema. Eyes: Pupils: Pupils are equal, round, and reactive to light. Cardiovascular: Rate and Rhythm: Regular rhythm. Pulses: Normal pulses. Heart sounds: Normal heart sounds. No murmur heard. Pulmonary: Breath sounds: Normal breath sounds. Abdominal: General: Bowel sounds are normal. Palpations: Abdomen is soft. Tenderness: There is no abdominal tenderness. Musculoskeletal: General: Normal range of motion. Cervical back: Neck supple. Skin: General: Skin is warm. Neurological: General: No focal deficit present. Mental Status: Yon is alert and oriented to person, place, and time. Psychiatric: Mood and Affect: Mood normal. Behavior: Behavior normal. Problem List Items Addressed This Visit Epigastric pain - Primary Rule out gastritis, H. pylori test ordered. Start sucralfate 3 times daily AC meals and nightly as needed epigastric pain x 2 weeks and follow-up with me in 4 weeks Recommended to avoid NSAIDs, alcohol. Graciela's disease TSH is at goal, continue off medications and monitor TSH every 6 months x 2 years High gamma glutamyl transferase (GGT) Other LFTs and liver ultrasound are within normal limits, unclear if it related to endometriosis orresidual of liver fibrosis from HCV. Repeat GGT and LFTs in 6 months, will do fib 4. Follow Up: Medications Ordered Prior to Encounter[3] [1] Patient Active Problem List Diagnosis Allergic rhinitis Atypical squamous cell changes of undetermined significance (ASCUS) on cervical cytology with negative high risk human papilloma virus (HPV) test result Endometriosis Fibrocystic changes of right breast Genital HSV Graciela's disease H/O tubal ligation Migraine with aura Epigastric pain High gamma glutamyl transferase (GGT) [2] Family History Problem Relation Name Age of Onset Other (vascular dementia) Mother Lymphoma Mother on 2012 Other (hcv) Mother Hypothyroidism Mother Other (htn) Father [3] No current outpatient medications on file prior to visit. No current facility-administered medications on file prior to visit. documented in this encounter Miscellaneous Notes * Assessment & Plan Note - Karyn Hutchinson MD - 02/18/2025 1:36 PM EDT Associated Problem(s): High gamma glutamyl transferase (GGT) Other LFTs and liver ultrasound are within normal limits, unclear if it related to endometriosis orresidual of liver fibrosis from HCV. Repeat GGT and LFTs in 6 months, will do fib 4. 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 pylori test ordered. Start sucralfate 3 times daily AC meals and nightly as needed epigastric pain x 2 weeks and follow-up with me in 4 weeks Recommended to avoid NSAIDs, alcohol. 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
--- OUTSIDE RECORDS SUMMARY | 2025-02-20 15:51 | XMS_ITS | Clinical Summary ---
Author Organization [facility] Address [address] [place] [address] Care Team Providers Care Manager Eligibility Name Role Phone Unavailable Primary Care Provider [...] Positive ASCUS Negative HPV. Pt referred to Mechatronics Technician. Fibrocystic changes of right breast 06/27/2019 H/O [...] Overview (09/12/2018): 09/08/18 Mammo and U/S at [facility] normal, BIRADS 1 It band syndrome, [...] 06/27/2022 06/27/2019 Diabetes Screening 08/12/2023 08/11/2020, 08/23/2018 Hypertension Screening (#1) 05/11/2024 Alcohol and Drug Screen 06/13/2024 01/27/20 21, 05/30/2020, 08/22/2018 Depression Annual Screen 06/13/2024 01/26/2021 [id number] ( season) 2025 Imm-Influenza (#1) 2025 Imm-DTaP/Tdap/Td (2 - Td or Tdap) 06/27/2029 020 HIV Screening Completed 08/11/2020, 06/27/2019 Syphilis Screening Discontinued 08/11/2020 Cervical Ablation/Cold-Knife Conization Discontinued Cervical Cryotherapy Discontinued Colposcopy Discontinued Endometrial Biopsy Discontinued Excision/Leep Discontinued HPV Genotyping Discontinued Vaginal Pap Discontinued Vulvoscopy Discontinued Procedures Procedure Name Priority Date/Time Associated Diagnosis Comments ANTIBODY HIV-1&HIV-2 SINGLE RESULT Routine 08/11/2020 11:20 AM EST Vaginal discharge FTA-ABS, SERUM Routine 08/11/2020 11:20 AM EST Dysuria COMPREHENSIVE METABOLIC PANEL Routine 08/11/2020 11:20 AM EST Flank pain PAP, LIQUID BASED Routine 06/27/2019 9:2 9 AM EST Encounter for gynecological examination with Papanicolaou smear of cervix MAMMOGRAM BI-RADS, ABSTRACTED Routine 09/08/2018 from Last 3 Months or Most Recently Relevant to Health Maintenance Results * FTA-ABS, SERUM (08/11/2020 11:20 AM EST) TREPONEMAL AB NEGATIVE NEGATIVE [facility] 08/11/2020 11:2 0 AM EST 08/11/2020 3:46 PM EST Narrative [facility] - 08/11/2020 5:16 PM EST [employer], [place] [address] Economic Development Specialist - Florinda Barragan MD PT ID [id number] ORD# [id number] Eliud Flanagan OTILIO LAB - BLOOD DRAW Edited Resul t - Final Performing Organization Address City/[facility]/ZIP Co de Phone Number [address] [address], * HIV-1 & HIV-2 ANTIBODIES (08/11/2020 11:20 AM EST) Pathologist [facility] HIV 1 AND 2 ANTIBODY SCREEN NEGATIVE NEGATIVE [facility] Comment: This assay is a 4th generation [...] AM EST 08/11/2020 3:46 PM EST Narrative [facility] - 08/11/2020 5:44 PM EST [facility] [employer], [place] [address] Economic Development Specialist - Florinda Barragan MD PT ID [id number] ORD# [id number] Eliud Flanagan PA-C LAB - BLOOD DRAW Final Result Performing Organization Address [facility] [place] [address], * COMPRE METAB PANEL (CMP) (08/11/2020 11:20 AM EST) Pathologist [facility] GLUCOSE 76 70 - 100 mg/dL [facility] Comment:Reference range appl icable to fasting specimens only BUN 12 5 - 25 mg/dL [facility] CREAT 0.89 0.5 - 1.1 mg/dL [facility] GLOMERULAR FILTRATION RATE > 60 [facility] Comment: If patient is -Citizen Of [place], multiply result by 1.21 Chronic Kidney Disease: < 60 ml/min/1.73 square meters Kidney Failure: < 15 ml/min/1.73 square meters SODIUM 138 135 - 145 mEq/L [facility] POTASSIUM 3.8 3.5 - 5.5 mmol/L [facility] CHLORIDE 104 96 - 110 mmol/L [facility] CO2 28 21 - 32 mmol/L [facility] ANION GAP 6 3 - 11 [facility] CALCIUM 9.4 8.5 - 10.5 mg/dL [facility] TOTAL PROTEIN 6.8 6.0 - 8.0 G/dL [facility] ALBUMIN 3.9 3.2 - 5.0 G/dL [facility] BILI, TOTAL 0.2 0.0 - 1.4 mg/dL [facility] SGOT 16 10 - 42 U/L [facility] SGPT 26 10 - 60 U/L [facility] ALK PHOS 63 42 - 121 U/L [facility] Blood Blood / Unknown 08/11/2020 1 1:20 AM EST 08/11/2020 3:46 PM EST Narrative [facility] - 08/11/2020 4:57 PM EST [facility] [employer], [place] [address] Economic Development Specialist - Florinda Barragan MD PT ID [id number] ORD# [id number] Eliud Flanagan PA-C LAB - BLOOD DRAW Edited Resul t - Final Performing Organization Address City/[facility]/ZIP Co de Phone Number [address] [phone] * (ABNORMAL) PAP, LIQUID BASED (06/27/2019 9:29 AM EST) Specimen from uterine cervix (specimen) Cervix uteri structure / Unknown 06/27/2019 9:29 AM EST Narrative [facility] - 07/05/2019 1:02 PM EST Positive ASCUS Negative HPV Dorota PEREZ LAB - PATHOLOGY AND CYTOLOG Y AMBULATORY Final Result [facility] [address] [place] [address], * MAMMOGRAM BI-RADS, ABSTRACTED (09/08/2018) Anatomical Region Laterality Modality Other us Provider Emil MARTINEZ MAMMO Final Result from Last 3 Months or Most Recently Relevant to Health Maintenance Insurance [employer]
--- OUTSIDE RECORDS SUMMARY | 2025-02-20 15:51 | XMS_ITS | Clinical Summary ---
Author Organization [employer] Address [address] [place] [address] Care Team Providers Care Political Analyst Name Role Phone Karyn Hutchinson MD Primary Care Provider + Allergies No known active allergies Medications sucralfate (Carafate) 1 g tablet Take 1 tablet (1 g) by mouth before breakfast, before lunch, before evening meal, and at bedtime for 14 days. 56 tablet 02/18/2025 5 Active Active Problems Problem Noted Date Diagnosed Date Epigastric pain 02/18/2025 Assessment & Plan (02/18/2025 1:35 PM EDT): Rule out gastritis, H. pylori test ordered. Start sucralfate 3 times daily AC meals and nightly as needed epigastric pain x 2 weeks and follow-up with me in 4 weeks Recommended to avoid NSAIDs, alcohol. 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 Repeat GGT and LFTs in 6 months, will do fib 4. 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 Positive ASCUS Negative HPV. Pt referred to [facility]. Assessment & Plan (01/02/2025 3:36 PM EDT): Previously followed by [facility], we will obtain Pap smear records and follow-up at next visit Fibrocystic changes of right breast 06/27/2019 Assessment & Plan (01/02/2025 3:35 PM EDT): Relevant results of breast biopsy and last mammogram. 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 Check TSH and follow-up at next visit or earlier as needed. Allergic rhinitis 08/22/2018 Resolved Problems Problem Noted Date Diagnosed Date Resolved Date Hepatitis C 09/26/2018 02/18/2025 Overview (01/01/2025): Per previous PCP. At age 16 - was treated for 6 months. Assessment & Plan (01/02/2025 3:35 PM EDT): Reportedly treated at age 16 Order HCV viral load, HIV, AFP, hepatitis profile and LFTs Encounters Date Type Department Care Team Description 02/18/2025 1:15 PM EDT Telemedicine [facility] [address] [place] [phone] Karyn Hutchinson MD Epigastric pain (Primary Dx); Graciela's disease; High gamma glutamyl transferase (GGT) 02/18/2025 Travel 02/11/2025 Travel 02/08/2025 Telephone [facility] [address] [place] [phone] Karyn Hutchinson MD Referral 01/14/2025 Results Follow-Up [facility] [address] [place] [phone] Karyn Hutchinson MD Hepatitis C Viral RNA, Quantitative, Real-Time PCR, Syphilis Screen, TSH with Reflex to Free T4, Additional followed-up results: 4 01/04/2025 Telephone [facility] [address] [place] [phone] Karyn Hutchinson MD Results 01/03/2025 Orders Only [address] [phone] Karyn Hutchinson MD 01/01/2025 10:45 AM EDT Office Visit [address] [phone] Karyn Hutchinson MD Graciela's disease (Primary Dx); Hepatitis C virus infection without hepatic coma, unspecified chronicity; Fibrocystic changes of right breast; Atypical squamous cell changes of undetermined significance (ASCUS) on cervical cytology with negative high risk human papilloma virus (HPV) test result 01/01/2025 Travel 12/29/2024 Telephone [facility] [address] [place] [phone] Karyn Hutchinson MD Chart Prep 12/24/2024 Patient Outreach [address] [phone] Karyn Hutchinson MD Pre-visit Planning ((Unable to [...] Description 05/03/2025 10:30 AM EST Office Visit [facility] [address] [place] [address] Karyn Hutchinson MD [address] [place] [address] Health Maintenance Due Date Last Done Comments Hepatitis A Vaccines (1 of 2 - Risk 2-dose series) 2004 Hepatitis B Vaccines (1 of 3 - 19+ 3-dose series) 2004 Pap Smear 2006 Cervical Cancer Screening 2015 HPV/Cotest 2015 HPV Vaccines (3 - 3-dose series) 12/26/2019 08/09/2019, 08/09/2019, 06/27/2019, Additional history exists COVID-19 Vaccine ( season) 2025 05/10/2021, 11/27/2020, 10/30/2020 Influenza Vaccine (#1) 2025 04/22/2022, 2021 Alcohol/Substance Use Screening 01/01/2026 01/01/2025 Depression Screening 01/01/2026 01/01/2025, 01/02/20 25 SDOH Screening 01/01/2026 01/01/2025 Tobacco Screening 01/01/2026 01/01/2025 Disability Screening 02/11/2026 02/11/2025 Family Planning (PISQ) 02/18/2026 02/18/2025 DTaP/Tdap/Td Vaccines (2 - Td or Tdap) [...] Procedure Name Priority Date/Time Associated Diagnosis Comments HEPATIC FUNCTION PANEL Routine 01/03/2025 6:38 AM EDT ALPHA FETOPROTEIN, TUMOR MARKER Routine 01/03/2025 6:38 AM EDT Hepatitis C virus infection without hepatic coma, unspecified chronicity GGT Routine 01/03/2025 6:38 AM EDT Hepatitis C virus infection without hepatic coma, unspecified chronicity LIPID PANEL WITH REFLEX TO DIRECT LDL Routine 01/03/2025 6:38 AM EDT Graciela's disease VITAMIN D,25-OH,TOTAL,IA Routine 01/03/2025 6:38 AM EDT Fibrocystic changes of right breast TSH W/REFLEX TO FT4 Routine 01/03/2025 6 :38 AM EDT Graciela's disease SYPHILIS SCREEN Routine 01/03/2025 6:38 AM EDT Hepatitis C virus infection without hepatic coma, unspecified chronicity HEPATITIS C VIRAL RNA, QUANTITATIVE, REAL-TIME PCR Routine 01/03/2025 6:38 AM EDT Hepatitis C virus infection without hepatic coma, unspecified chronicity from Last 3 Months Results * Syphilis Screen (01/03/2025 6:38 AM EDT) Syphilis Screen Nonreactive Nonreactive [facility] Blood 01/03/2025 6:38 AM EDT 01/03/2025 6:38 AM EDT us Karyn Hutchinson MD LAB BLOOD ORDERABLES Fin al Result Performing Organization Address City/[facility]/ZIP Co de Phone Number [facility] [address] [place] [phone] * Vitamin D, 25-Hydroxy, Total, Immunoassay (01/03/2025 6:38 AM EDT) Vitamin D 25-OH Total 57.1 >30 ng/mL [facility] Comment: Health Based Reference Values*< 20 ng/mL Jcnrfttyd10-40 ng/mL Insufficient> 30 ng/mL Sufficient*Zohra BACK. N Engl J Med. 2007;357:266-280There is no well-established upper level of normal vitamin Dlevels. Some laboratories use 50 ng/mL as an upper limit ofnormal. However, toxicity is patient-dependent and may occurat any level. Careful correlation with the patient'spresentation is necessary and, if there is concern forvitamin D toxicity, treatment should be consideredirrespective of the serum level.Care must be taken in interpreting Vitamin D results fromdifferent laboratories and methodologies. Published datademonstrated that results from patients undergoinghemodialysis may show a negative bias when tested withvarious automated 25-OH vitamin D assays when compared toLC-MS/MS.When testing samples from patients whose predominant form ofVitamin D is Vitamin D2, such as patients receiving VitaminD2 supplementation, results that are subtherapeutic shouldbe confirmed with another method such as LC-MS/MS. Blood 01/03/2025 6:38 AM EDT 01/03/2025 6:38 AM EDT us Karyn Hutchinson MD LAB BLOOD ORDERABLES Fin al Result Performing Organization Address [facility]/ZIP Co de Phone Number [facility] [address] [place] [phone] * TSH with Reflex to Free T4 (01/03/2025 6:38 AM EDT) TSH reflex Free T4 2.41 0.32 - 4.0 uIU/mL [facility] Blood 01/03/2025 6:38 AM EDT 01/03/2025 6:38 AM EDT us Karyn Hutchinson MD LAB BLOOD ORDERABLES Fin al Result Performing Organization Address [facility] Co de Phone Number [facility] [address] [place] [address] [phone] * (ABNORMAL) Lipid Panel with Reflex to Direct LDL (01/03/2025 6:38 AM EDT) Triglycerides 101 <150 mg/dL [facility] Comment:Desirable Triglyceri de: less than 150 mg/dLBorderline High Triglyceride 150-199 mg/dLHigh Triglyceride: 200-499 mg/dLVery High Triglyceride: greater than or equal to 5OO mg/dL Cholesterol 198 <200 mg/dL [facility] Comment:Desirable Cholestero l: less than 200 mg/dLBorderline High Cholesterol: 200-239 mg/dLHigh Cholesterol: greater than 239 mg/dL LDL Cholesterol Calculated 125(H) <100 mg/dL [facility] Comment:Desirable LDL: less than 100 mg/dLNear Optimal/Above Optimal LDL: 110- 129 mg/dLBorderline High LDL: 130-159 mg/dLHigh LDL: 160-189 mg/dLVery High LDL: greater than or equal to 190 mg/dL HDL Cholesterol 53 >40 mg/dL [facility] Comment:Desirable HDL: great er than 40 mg/dL Note: This HDL assay may give artificially low results in patients with liver disease. Blood 01/03/2025 6:38 AM EDT 01/03/2025 6:38 AM EDT us Karyn Hutchinson MD LAB BLOOD ORDERABLES Fin al Result Performing Organization Address [facility]/ZIP Co de Phone Number [facility] [address] [place] [address] [phone] * Hepatitis C Viral RNA, Quantitative, Real-Time PCR (01/03/2025 6:38 AM EDT) Pathologist [facility] Hepatitis C Viral Load <15 NOT DETECTED NOT DETECTED IU/mL [facility] HCV Log PCR <1.18 NOT DETECTED NOT DETECTED Log IU/mL [facility] Comment:For additional infor steven, please refer tohttp://education.asap54.com/faq/MIH34n2(This link is being provided for informational/educational purposes only.)THIS TEST WAS PERFORMED AT:[facility] [address] [id number] LONG MD Blood 01/03/2025 6:38 AM EDT 01/03/2025 6:38 AM EDT us Karyn Hutchinson MD LAB BLOOD ORDERABLES Fin al Result Performing Organization Address [facility]/ZIP Co de Phone Number [facility] [address] [place] [address] [phone] * (ABNORMAL) Alpha-Fetoprotein, Tumor Marker (01/03/2025 6:38 AM EDT) Pathologist [facility] Alpha Fetoprotein 8.6(A) ng/mL [facility] Comment:Reference Range: <6. 1The use of AFP as a tumor marker in females is not recommended.This test was performed using the Jackelyn Coulterchemiluminescent method. Values obtained fromdifferent assay methods cannot be usedinterchangeably. AFP levels, regardless ofvalue, should not be interpreted as absoluteevidence of the presence or absence of disease.THIS TEST WAS PERFORMED AT:[facility] [address] [id number] LOGN MD Blood Venous blood specimen / Unknown 01/03/2025 6:38 AM EDT 01/03/2025 6:38 AM EDT Karyn Hutchinson MD LAB BLOOD ORDERABLES Fin al Result Performing Organization Address [facility]/ZIP Co de Phone Number [facility] [address] [place] [phone] * Gamma Glutamyl Transferase (GGT) (01/03/2025 6:38 AM EDT) Gamma Glutamyl Transpeptidase 13 7 - 33 U/L [facility] Blood Venous blood specimen / Unknown 01/03/2025 6:38 AM EDT 01/03/2025 6:38 AM EDT us Karyn Hutchinson MD LAB BLOOD ORDERABLES Fin al Result Performing Organization Address [facility] Co de Phone Number [facility] [address] [place] [phone] * Hepatic Function Panel (01/03/2025 6:38 AM EDT) Bilirubin, Total 0.4 0.0 - 1.0 mg/dL [facility] Bilirubin, Direct 0.1 0.0 - 0.5 mg/dL [facility] Aspartate Amino Transferase 23 5 - 31 U/L [facility] Alanine Aminotransferase 21 0 - 31 U/L [facility] Total Protein 6.7 6.5 - 8.0 g/dL [facility] Albumin Level 4.3 3.5 - 5.0 g/dL [facility] Alkaline Phosphatase 47 39 - 117 U/L [facility] 01/03/2025 6:38 AM EDT 01/03/2025 6:38 AM EDT us Karyn Hutchinson MD LAB BLOOD ORDERABLES Fin al Result Performing Organization Address [facility] Co de Phone Number [facility] [address] [place] [phone] from Last 3 Months Insurance [facility] Care Teams Political Analyst Relationship Specialty Start Date End Date Karyn Hutchinson MD [address] [place] [phone] PCP - General Internal Medicine 01/01/25
--- OUTSIDE RECORDS SUMMARY | 2025-02-20 15:51 | XMS_ITS | Clinical Summary ---
Author Organization [facility] Address [address] [place] [address] Phone Care Team Providers Care Potline Monitor Name Role Phone Liz Olsen NP Primary Care Provider [phone] Allergies Active Allergy Reactions Criticality Noted Date Comments Kiwi Rash 11/29/2022 Medications omeprazole (PriLOSEC) [address] capsule Take 1 capsule (20 mg total) by mouth 1 (one) time each day. Do not crush or chew. 30 each 01/20/2025 02/20/20 25 Active Problems No known active problems Encounters Date Type Department Care Team Description 01/20/2025 7:25 AM EDT - 01/20/2025 9:10 AM EDT Emergency [facility] Emergency [address] [place] [phone] Ramon Conroy MD Pain of upper abdomen (Primary Dx) Discharge Disposition: Home or Self Care from [...] Sign Reading Time Taken Comments Blood Pressure 102/62 01/20/2025 9:09 AM EDT Pulse 72 01/20/2025 9:09 AM EDT Temperature 36.7 C (98.1 F) 01/20/2025 9:09 AM EDT Respiratory Rate 18 01/20/2025 9:09 AM EDT Oxygen Saturation 100% 01/20/2025 9:09 AM EDT Inhaled Oxygen Concentration - - Weight 82.6 kg (182 lb) 01/20/2025 6:59 AM EDT Height 177.8 cm (5' 10 ) 01/20/2025 6:59 AM EDT Body Mass Index 26.11 01/20/2025 6:59 AM EDT Plan of Treatment Health Maintenance Due Date Last Done Comments Hepatitis A Vaccines (1 of 2 - Risk 2-dose series) 2004 Hepatitis B Vaccines (1 of 3 - 19+ 3-dose series) 2004 HPV Vaccines (3 - 3-dose SCD M series) 12/26/2019 08/09/2019, 06/27/2019 Hepatitis C Screening 05/16/2022 Social Influencers of Health Screening 05/16/2022 Cervical Cancer Screening: P ap Smear 06/27/2022 06/27/2019 Depression Screening 06/13/2024 COVID-19 Vaccine (4 - 2024-2 6 season) 2025 05/10/2021, 11/27/2020, 10/30/2020 Influenza Vaccine (#1) 2025 04/22/2022 DTaP,Tdap,and Td [...] Procedure Name Priority Date/Time Associated Diagnosis Comments US ABDOMEN LIMITED STAT 01/20/2025 8: 28 AM EDT HCG, SERUM, QUALITATIVE STAT Add-on 01/20/2025 7:31 AM EDT CBC WITH AUTO DIFFERENTIAL STAT 01/20/2025 7:31 AM EDT LIPASE STAT 01/20/2025 7:31 AM EDT COMPREHENSIVE METABOLIC PANEL STAT 01/20/2025 7:31 AM EDT CBC AND DIFFERENTIAL STAT 01/20/2025 7:31 AM EDT from Last 3 Months Results * US Abdomen Limited (01/20/2025 8:28 AM EDT) Anatomical Region Laterality Modality Body Ultrasound 01/20/2025 8:30 AM EDT Impressions 01/20/2025 8:31 AM EDT Normal right upper quadrant ultrasound. -------- FINAL REPORT -------- Dictated By: Shane Jennings Dictated Date: 01/20/2025 08:30 ET Assigned Physician: Shane Jennings Reviewed and Electronically Signed By: Shane Jennings Signed Date: 01/20/2025 08:31 ET Workstation ID: [id number] Transcribed By: Self Edit Transcribed Date: 01/20/2025 08:30 ET Narrative 01/20/2025 8:31 AM EDT PROCEDURE: Right upper quadrant ultrasound. HISTORY: Eval for gallbladder disease. COMPARISON: None. TECHNIQUE: Grayscale, color Doppler, and spectral Doppler ultrasound evaluation of the right upper quadrant of the abdomen. FINDINGS: LIVER: Normal echotexture. No focal lesion. Normal flow in the main portal vein. BILIARY: Normal gallbladder. Normal caliber biliary tree with no ductal filling defect. Negative sonographic Bill sign. PANCREAS: Visualized portions are normal. RIGHT KIDNEY: Normal size and echotexture. No hydronephrosis or focal lesion. Procedure Note Shane Jennings MD - 01/20/2025 PROCEDURE: Right upper quadrant ultrasound. HISTORY: Eval for gallbladder disease. COMPARISON: None. TECHNIQUE: Grayscale, color Doppler, and spectral Doppler ultrasoundevaluation of the right upper quadrant of the abdomen. FINDINGS: LIVER: Normal echotexture. No focal lesion. Normal flow in the mainportal vein. BILIARY: Normal gallbladder. Normal caliber biliary tree with no ductalfilling defect. Negative sonographic Bill sign. PANCREAS: Visualized portions are normal. RIGHT KIDNEY: Normal size and echotexture. No hydronephrosis or focallesion. IMPRESSION: Normal right upper quadrant ultrasound. -------- FINAL REPORT -------- Dictated By: Shane Jennings Dictated Date: 01/20/2025 08:30 ET Assigned Physician: Shane Jennings Reviewed and Electronically Signed By: Shane Jennings Signed Date: 01/20/2025 08:31 ET Workstation ID: [id number] Transcribed By: Self Edit Transcribed Date: 01/20/2025 08:30 ET us Ramon Conroy MD IM US PROCEDURES Final Res ult * (ABNORMAL) CBC auto differential (01/20/2025 7:31 AM EDT) WBC 5.0 4.8 - 10.8 K/mcL LAB HEMETOLOGY METHOD 01/20/2025 7:50 AM EDT [facility] RBC 4.30 3.80 - 4.80 M/mcL LAB HEMETOLOGY METHOD 01/20/2025 7:50 AM EDT [facility] Hemoglobin 12.8 11.5 - 16.0 g/dL LAB HEMETOLOGY METHOD 01/20/2025 7:50 AM EDT [facility] Hematocrit 40.1 35.0 - 47.0 % LAB HEMETOLOGY METHOD 01/20/2025 7:50 AM EDT [facility] MCV 94.1 79.0 - 98.0 FL LAB HEMETOLOGY METHOD 01/20/2025 7:50 AM [facility] MCH 30.0 27.0 - 32.0 pcg LAB HEMETOLOGY METHOD 01/20/2025 7:50 AM [facility] MCHC 31.9(L) 32.0 - 37.0 g/dL LAB HEMETOLOGY METHOD 01/20/2025 7:50 AM [facility] RDW 12.8 11.0 - 15.0 % LAB HEMETOLOGY METHOD 01/20/2025 7:50 AM [facility] Platelets 185 130 - 400 K/mcL LAB HEMETOLOGY METHOD 01/20/2025 7:50 AM [facility] MPV 12.2(H) 7.0 - 11.0 FL LAB HEMETOLOGY METHOD 01/20/2025 7:50 AM [facility] NRBC 0.0 <1.0 % LAB HEMETOLOGY METHOD 01/20/2025 7:50 AM [facility] NRBC Absolute 0.00 <0.10 K/mcL LAB HEMETOLOGY METHOD 01/20/2025 7:50 AM [facility] Neutrophils Relative 66.9 % LAB HEMETOLOGY METHOD 01/20[facility]2025 7:[facility] Lymphocytes Relative 20.2 % LAB HEMETOLOGY METHOD 01/20/2025 7:50 AM [facility] Monocytes Relative 9.7 % LAB HEMETOLOGY METHOD 01/20/2025 7:50 [facility] Eosinophils Relative 2.4 % LAB HEMETOLOGY METHOD 01/20/2025 7:50 AM EDT [facility] Basophils Relative 0.6 % LAB HEMETOLOGY METHOD 01/20/2025 7:50 AM EDT [facility] Immature Granulocytes Relative 0.2 % LAB HEMETOLOGY METHOD 01/20/2025 7:50 AM EDT [facility] Neutrophils Absolute 3.37 1.50 - 7.00 K/mcL LAB HEMETOLOGY METHOD 01/20/2025 7:50 AM EDT [facility] Lymphocytes Absolute 1.02 1.00 - 5.00 K/mcL LAB HEMETOLOGY METHOD 01/20/2025 7:50 AM EDT [facility] Monocytes Absolute 0.49 0.20 - 1.00 K/mcL LAB HEMETOLOGY METHOD 01/20/2025 7:50 AM EDT [facility] Eosinophils Absolute 0.12 0.00 - 0.50 K/mcL LAB HEMETOLOGY METHOD 01/20/2025 7:50 AM EDT [facility] Basophils Absolute 0.03 0.00 - 0.20 K/mcL LAB HEMETOLOGY METHOD 01/20/2025 7:50 [facility] Immature Granulocytes Absolute 0.01 0.00 - 0.03 K/mcL LAB HEMETOLOGY METHOD 01/20/2025 7:50 AM EDT [facility] Blood Venous blood specimen / Unknown Venipuncture / Unknown 01/20/2025 7:31 AM EDT 01/20/2025 7:45 AM EDT us Melinda Wesley MD LAB BLOOD ORDERABLES Final Res ult [facility] [address] [place] [address], * hCG, serum, qualitative (01/20/2025 7:31 AM EDT) [facility] hCG Qual Negative Negative 01/20/2025 8:15 AM EDT [facility] Blood Venous blood specimen / Unknown Venipuncture / Unknown 01/20/2025 7:31 AM EDT 01/20/2025 7:45 AM EDT Ramon Conroy MD LAB BLOOD ORDERABLES Final Result Performing Organization Address [facility]/ZIP Co de Phone Number [facility] [address] [place] [address], [place] [phone] * Lipase (01/20/2025 7:31 AM EDT) [facility] Lipase 29 13 - 75 unit/L LAB CHEMISTRY METHOD 01/20/2025 8:24 AM EDT [facility] Blood Venous blood specimen / Unknown Venipuncture / Unknown 01/20/2025 7:31 AM EDT 01/20/2025 7:45 AM EDT Melinda Wesley MD LAB BLOOD ORDERABLES Final Res ult Performing Organization Address City/[facility]/ZIP Co de Phone Number [facility] [address] [place] [address], [place] [phone] * Comprehensive metabolic panel (01/20/2025 7:31 AM EDT) [facility] Sodium 142 133 - 145 mmol/L LAB CHEMISTRY METHOD 01/20/2025 8:24 AM EDT [facility] Potassium 4.1 3.5 - 5.5 mmol/L LAB CHEMISTRY METHOD 01/20/2025 8:24 AM EDT [facility] Chloride 107 96 - 110 mmol/L LAB CHEMISTRY METHOD 01/20/2025 8:24 AM EDT [facility] CO2 29 21 - 32 mmol/L LAB CHEMISTRY METHOD 01/20/2025 8:24 AM [facility] Anion Gap 6 3 - 11 LAB CHEMISTRY METHOD 01/20/2025 8:24 AM [facility] Glucose 92 70 - 100 mg/dL LAB CHEMISTRY METHOD 01/20/2025 8:24 AM [facility] BUN 13 5 - 25 mg/dL LAB CHEMISTRY METHOD 01/20/2025 8:24 AM [facility] Creatinine 0.86 0.50 - 1.10 mg/dL LAB CHEMISTRY METHOD 01/20/2025 8:24 AM [facility] eGFR 88 >=60 mL/min/1. 73m2 LAB CHEMISTRY METHOD 01/20/2025 8:24 AM [facility] Comment:Calculation based on the Chronic Kidney Disease Epidemiology Collaboration (CKD-EPI) equation refit without adjustment for race. BUN/Creatinine Ratio 15.1 LAB CHEMISTRY METHOD 01/20/2025 8:24 AM [facility] Calcium 9.0 8.5 - 10.5 mg/dL LAB CHEMISTRY METHOD 01/20/2025 8:24 AM [facility] AST (SGOT) 14 10 - 42 unit/L LAB CHEMISTRY METHOD 01/20/2025 8:24 AM [facility] ALT (SGPT) 22 10 - 60 unit/L LAB CHEMISTRY METHOD 01/20/2025 8:24 AM [facility] Alkaline Phosphatase 52 42 - 121 unit/L LAB CHEMISTRY METHOD 01/20/2025 8:24 AM [facility] Total Protein 6.4 6.0 - 8.0 g/dL LAB CHEMISTRY METHOD 01/20/2025 8:24 AM [facility] Albumin 3.7 3.2 - 5.0 g/dL LAB CHEMISTRY METHOD 01/20/2025 8:24 AM [facility] Total Bilirubin 0.3 0.0 - 1.4 mg/dL LAB CHEMISTRY METHOD 01/20/2025 8:24 AM EDT [facility] Blood Venous blood specimen / Unknown Venipuncture / Unknown 01/20/2025 7:31 AM EDT 01/20/2025 7:45 AM EDT us Melinda Wesley MD LAB BLOOD ORDERABLES Final Res ult [facility] [address] [place] [address], [place] [phone] from Last 3 Months Insurance [facility] [employer] Care Teams Potline Monitor Relationship Specialty Start Date End Date Liz Olsen NP [address] [place] [phone] PCP - General Nurse Practitioner 01/20/25
--- OUTSIDE RECORDS SUMMARY | 2025-02-20 15:51 | XMS_ITS | Encounter Summary ---
Author Organization [employer] Address [address] [facility] 7t [place] [address] Care Team Providers Care Fundraising Manager Name Role Phone Karyn Hutchinson MD Primary Care Provider + Reason for Visit * Reason Onset Date Comments Referral 02/08/2025 Encounter Details Date Type Department Care Team ([facility] st Contact Info) Description 02/08/2025 Telephone [facility] [address] [place], [place] [phone] Karyn Hutchinson MD [address] [place] [address] Referral Social History Tobacco Use Types Packs/Day Years [...] AM EDT documented as of this encounter Miscellaneous Notes * Telephone Encounter - Karyn Hutchinson MD - 02/15/2025 3:37 PM EDT Abd US ordered on 01/14/2025 not needed any longer as they had ultrasound [facility] on 01/20/2025. Please call patient and imaging provider and cancel test, will follow-up with patient at next visit. Please cancel test in [facility] as well. * Telephone Encounter - Keira Gu RN - 02/08/2025 3:54 PM EDT Please advise as to if US ordered 01/14/25 even still needs to be completed, ordered for h/o hep C with elevated AFP however pt. Had US performed in ED 01/20/25 with findings: FINDINGS: LIVER: Normal echotexture. No focal lesion. Normal flow in the main portal vein. * Telephone Encounter - Robin Russo - 02/08/2025 11:25 AM EDT Tc from pt stating she has an appt for a sonogram on 02/27 but would like a sooner appt. Pt was advised to contact pcp to express urgency on referral for her to be seen sooner. She is also requesting a call back to discuss details of sonogram. Please contact pt at [phone]. (Greek Speaker) documented in this encounter Plan of Treatment Upcoming Encounters Date Type Department Care Team (Late st Contact Info) Description 05/03/2025 10:30 AM EST Office Visit [facility] [address] [place] [address] Karyn Hutchinson MD [address] [place] [phone] documented as of this encounter Visit Diagnoses Not on filedocumented in this encounter Additional Health Concerns Assessment Noted Time PHQ-9 Depression Total Score: 8 01/02/20 10:50 AM EDT documented as of this encounter Care Teams Fundraising Manager Relationship Specialty Start Date End Date Karyn Hutchinson MD [address] [place] [phone] PCP - General Internal Medicine 01/01/25 documented as of this encounter
--- OUTSIDE RECORDS SUMMARY | 2025-02-20 15:51 | XMS_ITS | Encounter Summary ---
Author Organization [employer] Address [address] [facility] 7t [place] [address] Care Team Providers Care Yard Caller Name Role Phone Karyn Hutchinson MD Primary Care Provider + Reason for Visit * Reason Onset Date Comments Results 01/04/2025 Encounter Details Date Type Department Care Team ([facility] st Contact Info) Description 01/04/2025 Telephone [facility] [address] [place], [place] [phone] Karyn Hutchinson MD [address] [place] [address] Results Social History Tobacco Use Types Packs/Day Years [...] encounter Miscellaneous Notes * Telephone Encounter - Clinton Harman - 01/11/2025 8:46 AM EDT Tc from pt requesting a call back regarding prior message. Contact pt at [phone] (mongolian) * Telephone Encounter - Maya Carrillo - 01/04/2025 1:28 PM EDT TC from pt requesting call back regarding Results. Type of results: Lab Date when done: 01/03/25 Facility: [facility] Contact pt at [phone] documented in this encounter Plan of Treatment Upcoming Encounters Date Type Department Care Team (Late st Contact Info) Description 05/03/2025 10:30 AM EST Office Visit [facility] [address] [place] [address] Karyn Hutchinson MD [address] [place] [address] documented as of this encounter Visit Diagnoses Not on filedocumented in this encounter Additional Health Concerns Assessment Noted Time PHQ-9 Depression Total Score: 8 01/02/20 25 10:50 AM EDT documented as of this encounter Care Teams Yard Caller Relationship Specialty Start Date End Date Karyn Hutchinson MD [address] [place] [phone] PCP - General Internal Medicine 01/01/25 documented as of this encounter
--- OUTSIDE RECORDS SUMMARY | 2025-02-20 15:52 | XMS_ITS | Encounter Summary ---
Author Organization [employer] Address 75 [facility] 7t [place] [address] Care Team Providers Care Director Mobile Name Role Phone Karyn Hutchinson MD Primary Care Provider + Encounter Details Date Type Department Care Team (Latest Contact Info) Description 02/18/2025 Travel Social History Tobacco Use Types Packs/Day Years [...] AM EDT documented as of this encounter Plan of Treatment Upcoming Encounters Date Type Department Care Team (Late st Contact Info) Description 05/03/2025 10:30 AM EST Office Visit [facility] MED[facility]INE [address] [place] [address] Karyn Hutchinson MD [address] [place] [phone] documented as of this encounter Visit Diagnoses Not on filedocumented in this encounter Additional Health Concerns Assessment Noted Time PHQ-9 Depression Total Score: 8 01/02/20 10:50 AM EDT documented as of this encounter Care Teams Director Mobile Relationship Specialty Start Date End Date Karyn Hutchinson MD [address] [place] [phone] PCP - General Internal Medicine 01/01/25 documented as of this encounter
== END 2025-02-20 12:51 | disposition home or self-care (01) ==
LOC: HO.LNP 12:50
PROVIDERS: Visit Provider Internal Medicine
DX: R10.13 Epigastric pain (principal)
CPT/HCPCS: 87338

== ENCOUNTER 2025-05-03 11:28 | Outpatient (REF) | payer OTHER, SELFPAY ==
--- OUTSIDE RECORDS SUMMARY | 2025-05-03 10:30 | XMS_ITS | Encounter Summary ---
Author Organization [employer] Address [address] [facility] 7t [place] [address] Care Team Providers Care Houseman Name Role Phone Karyn Hutchinson MD Primary Care Provider + Reason for Visit * Reason Comments Abdominal Pain CO abd pain pt state s its gotten worse Encounter Details Date Type Department Care Team (Late st Contact Info) Description 05/03/2025 10:30 AM EST Office Visit [facility] [address] [place], [place] [phone] Karyn Hutchinson MD [address] [place], [place] [phone] Diarrhea, unspecified type (Primary Dx); Epigastric pain; High gamma glutamyl transferase (GGT); Screening mammogram for breast cancer; Atypical squamous cell changes of undetermined significance (ASCUS) on cervical cytology with negative high risk human papilloma virus (HPV) test result; Encounter for immunization Social History Tobacco Use Types Packs/Day Years Used Date Smoking Tobacco: Never Smokeless Tobacco: Never Alcohol Use Standard Drinks/Week Comments Never 0 (1 standard drink = 0.6 oz pur e alcohol) Alcohol Answer Date Recorded How often do you have a drink containing alcohol ? 0 05/03/2025 How many drinks containing a lcohol do you have on a typical day when you are drinking? 0 05/03/2025 How often do you have six or more drinks on one occasion? 0 05/03/2025 Depression Answer Date Recorded Patient Health Questionnaire-9 Score 0 05/03/2025 Patient Health Questionnaire-9 Score 0 05/03/2025 Last PHQ-9: Questionnaire Data Not on file 1 07/03/2024 Housing Stability Answer Date Recorded What is [...] Answer Date Recorded Patient Health Questionnaire-2 Score 0 05/03/2025 Internet Access Answer Date Recorded Internet Access Q1 Yes 01/01/2025 Internet Access Q2 Not on file 01/01/2025 Comments No Sex and Gender Information Value Date Recorded Sex Assigned at Female 04/12/2022 10:34 AM EDT Legal Sex Female 10:34 AM EDT Gender Identity Choose not to disclose 10:16 AM EDT Sexual Orientation Straight 12/31/2024 10 :17 AM EDT documented as of this encounter Last Filed Vital Signs Vital Sign Reading Time Taken Comments Blood Pressure 100/58 05/03/2025 10:30 AM EST Pulse 78 05/03/2025 10:30 AM EST Temperature 36.7 C (98.1 F) 05/03/2025 10:30 AM EST Respiratory Rate 18 05/03/2025 10:30 AM EST Oxygen Saturation 98% 05/03/2025 10:30 AM EST Inhaled Oxygen Concentration - - Weight 83.6 kg (184 lb 6.4 oz) 05/03/2025 10:30 AM EST Height 177.8 cm (5' 10 ) 05/03/2025 10:30 AM EST Body Mass Index 26.46 05/03/2025 10:30 AM EST documented in this encounter Functional Status * Over the past 2 weeks, how often have you been bothered by any of the following problems? Question Answer Date of Assessment Author Patient Health Questionnaire -2 Score 0 05/03/2025 10:35 AM EST Marsha Liao MA * Little interest or pleasure in doing things Answer Date of Assessment Author Not at all 05/03/2025 10:35 AM EST Marsha Liao, [place] * Feeling down, depressed, or hopeless Answer Date of Assessment Author Not at all 05/03/2025 10:35 AM EST Marsha Liao MA * Trouble falling or staying asleep, or sleeping too much Answer Date of Assessment Author Not at all 05/03/2025 10:35 AM EST Marsha Liao MA * Feeling tired or having little energy Answer Date of Assessment Author Not at all 05/03/2025 10:35 AM EST Marsha Liao, [place] * Poor appetite or overeating Answer Date of Assessment Author Not at all 05/03/2025 10:35 AM Marsha Barth MA * Feeling bad about yourself - or that you are a failure or have let yourself or your family down Answer Date of Assessment Author Not at all 05/03/2025 10:35 AM Marsha Barth MA * Trouble concentrating on things, such as reading the newspaper or watching television Answer Date of Assessment Author Not at all 05/03/2025 10:35 AM EST Marsha Liao MA * Moving or speaking so slowly that other people could have noticed? Or the opposite - being so fidgety or restless that you have been moving around a lot more than usual. Answer Date of Assessment Author Not at all 05/03/2025 10:35 AM EST Marsha Liao MA * Thoughts that you would be better off or hurting yourself in some way Answer Date of Assessment Author Not at all 05/03/2025 10:35 AM EST Marsha Liao MA * Patient Health Questionnaire-9 Score Answer Date of Assessment Author 0 05/03/2025 10:35 AM EST Marsha Liao MA * Over the last 2 weeks, how often have you been bothered by any of the following problems? Question Answer Date of Assessment Author Feeling nervous, anxious, or on edge 0 05/03/2025 10:35 AM EST Marsha Liao MA Not being able to stop or co ntrol worrying 0 05/03/2025 10:35 AM EST Liao, Marsha SAMEERA Worrying too much about diff erent things 0 05/03/2025 10:35 AM EST Liao, MarshaSAMEERA Trouble relaxing 0 05/03/2025 10:35 AM EST Liao, SAMEERA Larson Being so restless that it is hard to sit still 0 05/03/2025 10:35 AM EST Liao, MarshaSAMEERA Becoming easily annoyed or irritable 0 05/03/2025 10:35 AM EST LiaoMarsha turner SAMEERA Feeling afraid as if somethi ng awful might happen 0 05/03/2025 10:35 AM EST Liao, MarshaSAMEERA ELIA-7 Total Score 0 05/03/2025 10:35 AM EST Liao, SAMEERA Larson documented as of this encounter Plan of Treatment Upcoming Encounters Date Type Department Care Team (Late st Contact Info) Description 08/09/2025 11:30 AM EST Procedure Visit [facility] [address] [place] [address] Karyn Hutchinson MD [address] [place] [address] Scheduled Orders Name Type Priority Associated Diagnoses Orde r Schedule Stool - Gastrointestinal panel Microbiology Routine Diarrhea, unspecified type Expected: 05/03/2025 (Approximate), Expires: 05/03/2026 Fecal Leukocycte Stain Lab Routine Diarrhea, unspecified type Expected: 05/03/2025 (Approximate), Expires: 05/03/2026 TSH with Reflex to Free T4 Lab Routine Diarrhea, unspecified type Expected: 05/03/2025 (Approximate), Expires: 05/03/2026 Gamma Glutamyl Transferase (GGT) Lab Routine High gamma glutamyl transferase (GGT) Expected: 05/03/2025 (Approximate), Expires: 05/03/2026 Alpha-Fetoprotein, Tumor Marker Lab Routine High gamma glutamyl transferase (GGT) Expected: 05/03/2025 (Approximate), Expires: 05/03/2026 Magnesium Lab Routine Diarrhea, unspecified type Expected: 05/03/2025, Expires: 05/03/2026 Basic Metabolic Panel Lab Routine Diarrhea, unspecified type Expected: 05/03/2025 (Approximate), Expires: 05/03/2026 documented as of this encounter Visit Diagnoses Diagnosis Diarrhea, unspecified type- Primary Epigastric pain Abdominal pain, epigastric High gamma glutamyl transferase (GGT) Screening mammogram for breast cancer Atypical squamous cell changes of undetermined significance (ASCUS) on cervical cytology with negative high risk human papilloma virus (HPV) test result Encounter for immunization documented in this encounter Additional Health Concerns Assessment Noted Time PHQ-9 Depression Total Score: 0 05/03/20 10:35 AM EST documented as of this encounter Care Teams Houseman Relationship Specialty Start Date End Date Karyn Hutchinson MD [address] [place] [phone] PCP - General Internal Medicine 01/01/25 documented as of this encounter
--- OUTSIDE RECORDS SUMMARY | 2025-05-03 12:20 | XMS_ITS | Encounter Summary ---
Author Organization [employer] Address [address] [facility] 7t [place] [address] Care Team Providers Care Shoulder Puncher Name Role Phone Karyn Hutchinson MD Primary Care Provider + Reason for Visit * Reason Onset Date Comments chart prep 05/02/2025 Encounter Details Date Type Department Care Team ([facility] st Contact Info) Description 05/02/2025 Telephone [facility] MED[facility]INE [address] [place], [place] [phone] Karyn Hutchinson MD [address] [place] [address] chart prep Social History Tobacco Use Types Packs/Day Years [...] the past 12 months, has t he [employer] gas, oil or water company threatened to [...] encounter Miscellaneous Notes * Telephone Encounter - Sharona Deras MA - 05/02/2025 2:13 PM EST Chart Prep Labs: done Images: done Referrals: complete Vaccines due: Covid, Flu, Hep B, Hep A, and HPV Screenings: pap smear Overdue care gaps: PHQ-9 and ELIA-7 documented in this encounter Plan of Treatment Upcoming Encounters Date Type Department Care Team (Late st Contact Info) Description 08/09/2025 11:30 AM EST Procedure Visit [facility]INE [address] [place] [address] Karyn Hutchinson MD [address] [place] [address] documented as of this encounter Visit Diagnoses Not on filedocumented in this encounter Additional Health Concerns Assessment Noted Time PHQ-9 Depression Total Score: 8 01/02/20 10:50 AM EDT documented as of this encounter Care Teams Shoulder Puncher Relationship Specialty Start Date End Date Karyn Hutchinson MD [address] [place] [phone] PCP - General Internal Medicine 01/01/25 documented as of this encounter
--- OUTSIDE RECORDS SUMMARY | 2025-05-03 12:20 | XMS_ITS | Clinical Summary ---
Author Organization [facility] Address [address] [place] [address] Phone Care Team Providers Care Dispatch Supervisor Name Role Phone Liz Olsen NP Primary Care Provider [phone] Allergies Active Allergy Reactions Criticality Noted Date Comments Kiwi Rash 11/29/2022 Medications No known medications Active Problems No known active problems Surgical History Surgery Date Site/Laterality Comments TUBAL [...] 06/27/2022 06/27/2019 Depression Screening 06/13/2024 COVID-19 Vaccine ( - 2024-2 6 season) 2025 05/10/2021, 11/27/2020, 10/30/2020 Influenza Vaccine (#1) 2025 04/22/2022 DTaP,Tdap,and Td Vaccines (2 - Td or Tdap) 06/27/2029 06/27/2019 RSV Immunization Adult Patients (1 - 1-dose 75+ series) 2060 HIV [...] patient's age to complete this topic Insurance [facility] [employer] Care Teams Dispatch Supervisor Relationship Specialty Start Date End Date Liz Olsen NP [address] [place] [phone] PCP - General Nurse Practitioner 01/20/25
--- OUTSIDE RECORDS SUMMARY | 2025-05-03 12:20 | XMS_ITS | Encounter Summary ---
Author Organization [employer] Address [address] [facility] 7t [place] [address] Care Team Providers Care Candy Bar Attendant Name Role Phone Karyn Hutchinson MD Primary Care Provider + Encounter Details Date Type Department Care Team (Latest Contact Info) Description 05/03/2025 Travel Social History Tobacco Use Types Packs/Day [...] AM EDT documented as of this encounter Functional Status * Over the past 2 weeks, how often have you been bothered by any of the following problems? Question Answer Date of Assessment Author Patient Health Questionnaire -2 Score 0 05/03/2025 10:35 AM Marsha Barth MA * Little interest or pleasure in doing things Answer Date of Assessment Author Not at all 05/03/2025 10:35 AM Marsha Barth MA * Feeling down, depressed, or hopeless Answer Date of Assessment Author Not at all 05/03/2025 10:35 AM Marsha Barth MA * Trouble falling or staying asleep, or sleeping too much Answer Date of Assessment Author Not at all 05/03/2025 10:35 AM Marsha Barth MA * Feeling tired or having little energy Answer Date of Assessment Author Not at all 05/03/2025 10:35 AM Marsha Barth MA * Poor appetite or overeating Answer [...] 05/03/2025 10:35 AM Marsha Barth MA * Moving or speaking so slowly that other people could have noticed? Or the opposite - being so fidgety or restless that you have been moving around a lot more than usual. Answer Date of Assessment Author Not at all 05/03/2025 10:35 AM Marsha Barth MA * Thoughts that you would be better off or hurting yourself in some way Answer Date of Assessment Author Not at all 05/03/2025 10:35 AM Marsha Barth MA * Patient Health Questionnaire-9 Score Answer Date of Assessment Author 0 05/03/2025 10:35 AM Marsha Barth MA * Over the last 2 weeks, how often have you been bothered by any of the following problems? Question Answer Date of Assessment Author Feeling nervous, anxious, or on edge 0 05/03/2025 10:35 AM Marsha Barth MA Not being able to stop or co ntrol worrying 0 05/03/2025 10:35 AM Marsha Barth MA Worrying too much about diff erent things 0 05/03/2025 10:35 AM Marsha Barth MA Trouble relaxing 0 05/03/2025 10:35 AM Marsha Barth MA Being so restless that it is hard to sit still 0 05/03/2025 10:35 AM Marsha Barth MA Becoming easily annoyed or irritable 0 05/03/2025 10:35 AM EST Marsha Liao MA Feeling afraid as if somethi ng awful might happen 0 05/03/2025 10:35 AM EST Marsha Liao MA ELIA-7 Total Score 0 05/03/2025 10:35 AM EST Marsha Liao MA documented as of this encounter Plan of Treatment Upcoming Encounters Date Type Department Care Team (Late st Contact Info) Description 08/09/2025 11:30 AM EST Procedure Visit [facility] MEDICINE [address] [place], [place] [phone] Karyn Hutchinson MD [address] [place] [address] documented as of this encounter Visit Diagnoses Not on filedocumented in this encounter Additional Health Concerns Assessment Noted Time PHQ-9 Depression Total Score: 0 05/03/20 10:35 AM EST documented as of this encounter Care Teams Candy Bar Attendant Relationship Specialty Start Date End Date Karyn Hutchinson MD [address] [place] [phone] PCP - General Internal Medicine 01/01/25 documented as of this encounter
--- OUTSIDE RECORDS SUMMARY | 2025-05-03 12:20 | XMS_ITS | Encounter Summary ---
Author Organization [employer] Address [address] [facility] 7t [place] [address] Care Team Providers Care Stick Roller Name Role Phone Karyn Hutchinson MD Primary Care Provider + Reason for Visit * Reason Onset Date Comments Results 01/04/2025 Encounter Details Date Type Department Care Team ([facility] st Contact Info) Description 01/04/2025 Telephone [facility] MEDICINE [address] [place], [place] [phone] Karyn Hutchinson MD [address] [place] [address] Results Social History Tobacco Use Types Packs/Day [...] back regarding prior message. Contact pt at [phone] (serbian) * Telephone Encounter - Maya Carrillo - 01/04/2025 1:28 PM EDT TC from pt requesting call back regarding Results. Type of results: Lab Date when done: 01/03/25 Facility: [facility] Contact pt at [phone] documented in this encounter Plan of Treatment Upcoming Encounters Date Type Department Care Team (Late st Contact Info) Description 08/09/2025 11:30 AM EST Procedure Visit [facility] MEDICINE [address] [place] [address] Karyn Hutchinson MD [address] [place] [address] documented as of this encounter Visit Diagnoses Not on filedocumented in this encounter Additional Health Concerns Assessment Noted Time PHQ-9 Depression Total Score: 8 01/02/20 25 10:50 AM EDT documented as of this encounter Care Teams Stick Roller Relationship Specialty Start Date End Date Karyn Hutchinson MD [address] [place] [phone] PCP - General Internal Medicine 01/01/25 documented as of this encounter
--- OUTSIDE RECORDS SUMMARY | 2025-05-03 12:20 | XMS_ITS | Clinical Summary ---
Author Organization [employer] Address [address] [facility] [address] [place] [address] Care Team Providers Care Surgical Dressing Maker Name Role Phone Karyn Hutchinson MD Primary Care Provider + Allergies Active Allergy Reactions Criticality Noted Date Comments Kiwi Extract Rash Low 11/29/2022 Medications magnesium 30 MG tablet Take 30 mg by mouth 2 times daily. Active calcitriol (Rocaltrol) 0.25 MCG capsule Take 0.25 mcg by mouth Once per day. Active Active Problems Problem Noted Date Diagnosed Date Diarrhea 05/03/2025 Epigastric pain 02/18/2025 Assessment & Plan (02/18/2025 [...] Positive ASCUS Negative HPV. Pt referred to Professional Security Officer. Assessment & Plan (01/02/2025 3:36 PM EDT): Previously followed by [facility]ESS, we will obtain Pap smear records and [...] Encounters Date Type Department Care Team Description 05/03/2025 10:30 AM EST Office Visit [facility] MED[facility] [address] [place] [id number] Karyn Hutchinson MD Diarrhea, unspecified type (Primary Dx); Epigastric pain; High gamma glutamyl transferase (GGT); Screening mammogram for breast cancer; Atypical squamous cell changes of undetermined significance (ASCUS) on cervical cytology with negative high risk human papilloma virus (HPV) test result; Encounter for immunization 05/03/2025 Travel 05/02/2025 Telephone [facility] [address] [place] [phone] Karyn Hutchinson MD chart prep 04/26/2025 Travel 02/18/2025 1:15 PM EDT Telemedicine [facility] [address] [place], [place] [phone] Karyn Hutchinson MD Epigastric pain (Primary Dx); Graciela's disease; High gamma glutamyl transferase (GGT) 02/18/2025 Travel 02/11/2025 Travel 02/08/[address] [phone] Karyn Hutchinson MD Referral from Last 3 Months Immunizations Immunization Administration Dates Next Due HPV 9-Valent 08/09/2019,06/27/2019 HPV, Quadrivalent 08/09/2019,06/27/2019 HepB-CpG 05/03/2025 Influenza, IIV3, injectable 04/22/2022 Influenza, seasonal, injectable, preservative fr ee 04/22/2022 Pfizer Covid-19 Vaccine 12+ Bivalent 04/22/2022 Tdap 06/27/2019 Family History Medical History Relation Name [...] Mass Index 26.46 05/03/2025 10:30 AM EST Plan of Treatment Upcoming Encounters Date Type Department Care Team ([facility] st Contact Info) Description 08/09/2025 11:30 AM EST Procedure Visit [facility] [address] [place] [address] Karyn Hutchinson MD [address] [place] [address] Health Maintenance Due Date Last Done Comments Hepatitis A Vaccines (1 of 2 - Risk 2-dose series) 2004 Pap Smear 2006 Cervical Cancer Screening 2015 HPV/Cotest 2015 HPV Vaccines (3 - 3-dose series) 12/26/2019 08/09/2019, 08/09/2019, 06/27/2019, Additional history exists COVID-19 Vaccine ( season) 2025 04/22/2022, 05/10/2021, 11/27/2020, Additional history exists Influenza Vaccine (#1) 2025 04/22/2022, 2021 Hepatitis B Vaccines (2 of 2 - CpG 2-dose series) 05/31/2025 05/03/2025 SDOH Screening 01/01/2026 01/01/2025 Disability Screening 02/11/2026 02/11/2025 Family Planning (PISQ) 02/18/2026 02/18/2025 Alcohol/Substance Use Screening 05/03/2026 05/03/2025 Depression Screening 05/03/2026 05/03/2025, 05/03/20 25 Tobacco Screening 05/03/2026 05/03/2025 DTaP/Tdap/Td Vaccines (2 - Td or Tdap) [...] Procedure Name Priority Date/Time Associated Diagnosis Comments HELICOBACTER PYLORI AG, EIA, STOOL Routine 02/20/2025 12:25 PM EDT Epigastric pain from Last 3 Months Results * Helicobacter pylori??Antigen, EIA, Stool (02/20/2025 12:25 PM EDT) H pylori Ag Stool SEE NOTE [facility] Comment:HELICOBACTER PYLORI AG, EIA, STOOL Micro Number: [id number] Test Status: Final Specimen Source: Stool Specimen Quality: Adequate H.pylori Ag: Not Detected Antimicrobials, proton pump inhibitors, and bismuth preparations inhibit H. pylori and ingestion up to two weeks prior to testing may cause false negative results. If clinically indicated the test should be repeated on a new specimen obtained two weeks after discontinuing treatment. Reference Range: Not DetectedTHIS TEST WAS PERFORMED AT:[facility] [place] [id number] LONG MD Stool Rectal contents / Unknown 02/20/2025 12:25 PM EDT 02/20/2025 12:52 PM EDT us Karyn Hutchinson MD LAB BODY FLUIDS AND STOO LS ORDERABLES Final Result [facility] [address] [place] [address] [phone] from Last 3 Months Insurance [facility] Care Teams Surgical Dressing Maker Relationship Specialty Start Date End Date Karyn Hutchinson MD [address] [place] [phone] PCP - General Internal Medicine 01/01/25
[2025-05-03 13:33] LABS: Anion Gap 7 (12-20)
[2025-05-03 13:37] LABS: Blood Urea Nitrogen 14 mg/dL (9-16); Calcium 8.9 mg/dL (8.4-10.2); Carbon Dioxide 31 mmol/L (22-29); Chloride 107 mmol/L (96-108); Cholesterol 188 mg/dL (<200); Estimated Glomerular Filt Rate > 60; HDL Cholesterol 57 mg/dL (>40); Magnesium 2.1 mg/dL (1.6-2.6); Potassium 3.6 mmol/L (3.3-5.1); Sodium 141 mmol/L (135-145); Triglycerides 123 mg/dL (<150)
[2025-05-03 14:01] LABS: Gamma Glutamyl Transpeptidase 18 U/L (7-33)
[2025-05-03 19:18] LABS: Reflex LDLD? No
[2025-05-04 08:28] LABS: Syphilis Screen Nonreactive (Nonreactive)
[2025-05-04 08:45] LABS: HBS Num1 0.00 mIU/mL (0-7.99); HBc Num1 0.07 S/CO (0.00-0.79); HBsAGNum1 0.68 S/CO (0.00-0.99); Hepatitis A Antibody IgM 0.19 Index (0-0.79); Hepatitis B Surface Antigen Negative (Negative); ~HepC Num1 4.73 S/CO (0.00-0.79); ~Hepatitis A Antibody IgM Nonreactive (Nonreactive); ~Hepatitis B Surface Antibody NONREACTIVE (Nonreactive); ~Hepatitis C Antibody Reactive (Nonreactive)
[2025-05-06 08:13] LABS: HCV Log PCR <1.18 NOT DETECTED Log IU/mL (NOT DETECTED); HepC Viral Load <15 NOT DETECTED IU/mL (NOT DETECTED)
== END 2025-05-03 11:29 | disposition home or self-care (01) ==
LOC: HO.HHCL 11:28
PROVIDERS: Internal Medicine; PCP Internal Medicine; Visit Provider Internal Medicine
DX: Z11.59 Encounter for screening for other viral diseases (principal); Z11.3 Encounter for screening for infections with a predominantly sexual mode of transmission; B19.20 Unspecified viral hepatitis C without hepatic coma; R19.7 Diarrhea, unspecified; E06.3 Autoimmune thyroiditis; N60.11 Diffuse cystic mastopathy of right breast
CPT/HCPCS: 36415; 80048; 80061; 82105; 82306; 82977; 83735; 84443; 86704; 86706; 86709; 86780; 86803; 87340; 87522

== ENCOUNTER 2025-05-24 10:10 | Outpatient (REF) | payer OTHER, SELFPAY ==
--- NOTE | ~2025-05-24 | MM_ITS ---
EXAMINATION: MM SCREENING DIGITAL BREAST TOMOSYNTHESIS, BILATERAL CLINICAL INFORMATION: Screening. Asymptomatic. COMPARISON: Mammography: Comparison is made with available priors TECHNIQUE: Digital breast mammography with tomosynthesis is performed in both the craniocaudal and mediolateral oblique views along with computer-aided detection (CAD). FINDINGS: The breasts are heterogeneously dense, which may obscure small masses. There are no significant masses, abnormal calcifications, or other abnormalities. MM/MM tomosynthesis screening BI IMPRESSION: No mammographic evidence of malignancy. ASSESSMENT: BI-RADS Category 1: Negative RECOMMENDATION: Routine annual mammography screening. 1 year F/U This examination should not preclude the clinical evaluation of a suspicious palpable abnormality. This patient's information was entered into a reminder system with a target due date for their next mammogram. Electronically signed by: Anaya Vail DO 05/28/2025 03:27 PM [place]
== END 2025-05-24 10:11 | disposition home or self-care (01) ==
LOC: HO.MAMMO 10:10
PROVIDERS: PCP Internal Medicine; Visit Provider Internal Medicine
DX: Z12.31 Encounter for screening mammogram for malignant neoplasm of breast (principal)
CPT/HCPCS: 77063; 77067

== ENCOUNTER → 2025-05-24 10:30 | Outpatient (BNV) | payer OTHER, SELFPAY | PROVIDERS: PCP Internal Medicine; Visit Provider Internal Medicine | DX: Z12.31 Encounter for screening mammogram for malignant neoplasm of breast (principal) | CPT/HCPCS: 77063; 77067 ==